=== PATIENT | male | born 1970 | race African-American/Black ===

== ENCOUNTER 2017-10-18 01:40 | Emergency (ER) | payer OTHER, SELFPAY | END 2017-10-18 02:55 | disposition home or self-care (01) | PROVIDERS: Emergency Provider Emergency Medicine; Family Provider Emergency Medicine; Visit Provider Emergency Medicine | DX: J20.9 Acute bronchitis, unspecified (principal); J01.00 Acute maxillary sinusitis, unspecified; I10 Essential (primary) hypertension; I20.8 Other forms of angina pectoris; F41.9 Anxiety disorder, unspecified | CPT/HCPCS: 71020; 87275; 87276; 99283 ==

== ENCOUNTER 2017-12-31 20:12 | Emergency (ER) | payer OTHER, SELFPAY ==
[2017-12-31 20:29] VITALS: BP 143/100; PULSE 78; RESP 20; TEMP 37.3; O2SAT 95; BMI 26.6
--- NOTE | 2017-12-31 20:32 | HMH.EDUTC ---
[facility] – [place], [place] Disposition Clinical Impression: Upper respiratory infection Qualifiers: URI type: unspecified URI Qualified Code(s): J06.9 - Acute upper respiratory infection, unspecified Disposition: Home, Self-Care Condition on Discharge: Good Instructions: DI for Fever (Symptom) -- Adult, Sore Throat Additional Instructions: * Monitor Temp. Tylenol and/or Ibuprofen as needed. ER if fever is no less than 101 despite alternating Tylenol and Ibuprofen * Encourage fluids, water, Gatorade, powerade, pedialyte if /toddler/or child * Warm salt water gargles for throat irritation *Warm fluids *Sore throat lozenges *Sleep elevated *humidifier or vaporizer Lots of rest Increase fluids, water, Gatorade, powerade *Flonase 2 sprays each nostril daily but may take 2-3 days to notice improvement with it *Your throat swab was sent to lab for culture. Those results area typically sent to your primary care physician. Be sure to follow up in 2-3 days if no improvement so they can review those results and treat if necessary If you dont have primary care I recommend you get one, but in the mean time you will have to return to a walk in clinic Follow up IMMEDIATELY for new or worsening of symptoms OR no noticeable improvement over the next 48-72 hours. 911 immediately for any life threatening symptoms such as chest pain or difficulty breathing Prescriptions: Azithromycin [Z-Justo 250mg Tab] 250 mg PO UD DOSE PK #6 tab Dextromethorphan Polistirex [Delsym] 10 ml PO Q12H PRN #300 [id number].er.[id number] PRN Reason: Cough Fluticasone Propionate [Flonase 50mcg nasal spray 16gm] 2 spr NS DAILY #1 bottle predniSONE [Prednisone 5mg Tab Dose-Pack] 5 mg PO UD DOSE PK #21 pack Referrals: Ralf Thomas MD [Primary Care Provider] - Time of Disposition: 20:48 Medical Decision Making - Medical Records Medical records reviewed: Yes: I reviewed the patient's medical records. Vital Signs: 12/31/17 20:29 Temperature 99.1 F Temperature Source Temporal Artery Scan Pulse Rate [Right] 78 Respiratory Rate 20 Blood Pressure [Right Arm] 143/100 Blood Pressure Mean [Right Arm] 114 Blood Pressure Source [Right Arm] Automatic Cuff Blood Pressure Position [Right Arm] Sitting 02 Sat by Pulse Oximetry 95 Oxygen Delivery Method Room Air - Lab Data Lab results reviewed: Yes: I reviewed the patient's lab results. Lab Results 12/31/17 20:31: Influenza Type A Ag Negative, Influenza Type B Ag Negative, Strep Scn Rapid Clinic Negative Orders (Tests/Meds): ORDERS Category Date Time Status Strep Screen Confirmation Stat Micro 12/31/17 20:31 Received - David Inquiry Pt receiving controlled substance: No David was queried for this patient: No [facility] – [place], [place] HPI - General Stated complaint: body pain Mode of Arrival: Ambulatory Source of Information: Patient Limitations: No Limitations Description of Symptoms (Recalled from Triage Doc. by RN): STATES FLU HEENT Symptoms (Recalled from RN notes): No Resp Symptoms (Recalled from RN notes): No Skin Symptoms (Recalled from RN notes): No MS Symptoms (Recalled from RN notes): No Functional Status (Recalled from RN notes): N - History of Present Illness Provider Complaint: Patient states that he feels like he may have the flu State that he has been having body aches, chills, fever, cough and sinus congestion State that he feels like he is having drainage down the back of his throat State that today he has been having fever on and off and continued to feel worse State that he is going out of town in the next couple of days and wanted to get checked to see if he had the flu - Related Data Home Medications Medication Instructions Recorded Confirmed ALPRAZolam [Alprazolam 2mg Tab] 5 mg PO DAILY 12/31/17 12/31/17 Lisinopril [Lisinopril 30mg Tablet] 30 mg PO DAILY 12/31/17 12/31/17 Previous Rx's Medication Instructions Recorded Azithromycin [Z-Justo 250mg Tab] 250 mg PO UD DOSE PK #6 tab 12/31/17 Dominic
[2017-12-31 20:41] LABS: UTC Influenza A Antigen Negative (Negative); UTC Influenza B Antigen Negative (Negative); UTC Strep Screen (Rapid) Negative (Negative)
[2017-12-31 20:51] VITALS: BP 142/90; PULSE 78; RESP 20; TEMP 37.2
== END 2017-12-31 20:52 | disposition home or self-care (01) ==
PROVIDERS: Emergency Provider Nurse Practitioner; Family Provider Emergency Medicine; PCP Emergency Medicine
DX: J06.9 Acute upper respiratory infection, unspecified (principal)
CPT/HCPCS: 87804; 87880; 99203

== ENCOUNTER → 2018-01-04 10:04 | Outpatient (REF) | payer OTHER, SELFPAY ==
[2018-01-04 14:06] LABS: Amphetamine/Metha Screen,Urine Negative ng/mL (<1000); Barbiturates Screen,Urine Negative ng/mL (<200); Benzodiazepines Screen,Urine Positive ng/mL (200); Cannabinoid Screen,Urine Negative ng/mL (<50); Cocaine Screen,Urine Negative ng/g (<300); Methadone Screen,Urine Negative ng/mL (<300); Opiate Screen,Urine Negative ng/mL (<300); Phencyclidine Screen,Urine Negative ng/mL (<25)
== END ==
LOC: LAB 10:04
PROVIDERS: Visit Provider Emergency Medicine
DX: Z79.899 Other long term (current) drug therapy (principal)
CPT/HCPCS: 80305

== ENCOUNTER → 2018-02-07 14:27 | Outpatient (POV) | payer OTHER, SELFPAY | PROVIDERS: Family Provider Emergency Medicine; PCP Emergency Medicine; Visit Provider Specialist | DX: R20.0 Anesthesia of skin (principal) | CPT/HCPCS: 95886; 95908 ==

== ENCOUNTER → 2018-04-15 09:30 | Outpatient (CLI) | payer OTHER, SELFPAY ==
[2018-04-15 14:00] LABS: Amphetamine/Metha Screen,Urine Negative ng/mL (<1000); Barbiturates Screen,Urine Negative ng/mL (<200); Benzodiazepines Screen,Urine Positive ng/mL (200); Cannabinoid Screen,Urine Negative ng/mL (<50); Cocaine Screen,Urine Negative ng/g (<300); Methadone Screen,Urine Negative ng/mL (<300); Opiate Screen,Urine Negative ng/mL (<300); Phencyclidine Screen,Urine Negative ng/mL (<25)
== END ==
PROVIDERS: Visit Provider Emergency Medicine
DX: Z79.899 Other long term (current) drug therapy (principal)
CPT/HCPCS: 80305

== ENCOUNTER → 2019-02-06 17:53 | Outpatient (CLI) | payer OTHER, SELFPAY ==
[2019-02-06 19:43] LABS: Amphetamine/Metha Screen,Urine Negative ng/mL (<1000); Barbiturates Screen,Urine Negative ng/mL (<200); Benzodiazepines Screen,Urine Positive ng/mL (<200); Cannabinoid Screen,Urine Negative ng/mL (<50); Cocaine Screen,Urine Negative ng/mL (<300); Methadone Screen,Urine Negative ng/mL (<300); Opiate Screen,Urine Negative ng/mL (<300); Phencyclidine Screen,Urine Negative ng/mL (<25)
== END ==
PROVIDERS: Visit Provider Emergency Medicine
DX: Z79.899 Other long term (current) drug therapy (principal)
CPT/HCPCS: 80305

== ENCOUNTER → 2019-05-10 17:56 | Outpatient (CLI) | payer OTHER, SELFPAY ==
[2019-05-10 19:01] LABS: Amphetamine/Metha Screen,Urine Negative ng/mL (<1000); Barbiturates Screen,Urine Negative ng/mL (<200); Benzodiazepines Screen,Urine Positive ng/mL (<200); Cannabinoid Screen,Urine Negative ng/mL (<50); Cocaine Screen,Urine Negative ng/mL (<300); Methadone Screen,Urine Negative ng/mL (<300); Opiate Screen,Urine Negative ng/mL (<300); Phencyclidine Screen,Urine Negative ng/mL (<25)
== END ==
PROVIDERS: Visit Provider Emergency Medicine
DX: Z79.899 Other long term (current) drug therapy (principal)
CPT/HCPCS: 80305

== ENCOUNTER → 2019-11-03 14:02 | Outpatient (CLI) | payer OTHER, SELFPAY ==
[2019-11-03 17:11] LABS: Amphetamine/Metha Screen,Urine Negative ng/mL (<1000); Barbiturates Screen,Urine Negative ng/mL (<200); Benzodiazepines Screen,Urine Positive ng/mL (<200); Cannabinoid Screen,Urine Negative ng/mL (<50); Cocaine Screen,Urine Negative ng/mL (<300); Methadone Screen,Urine Negative ng/mL (<300); Opiate Screen,Urine Negative ng/mL (<300); Phencyclidine Screen,Urine Negative ng/mL (<25)
== END ==
PROVIDERS: Visit Provider Emergency Medicine
DX: Z79.899 Other long term (current) drug therapy (principal)
CPT/HCPCS: 80305

== ENCOUNTER → 2019-11-27 15:36 | Outpatient (CLI) | payer OTHER, SELFPAY ==
--- NOTE | 2019-11-27 15:45 | XR_ITS ---
PROCEDURE: XR CHEST 2V CLINICAL HISTORY: sinusitis Cough, spitting up blood COMPARISON: CXR1 CHEST-PORTABLE from 02/25/2017 CXR CHEST(2 VIEWS-NOT PORTABLE) from 10/18/2017 XR CHEST 2V from 11/15/2019 FINDINGS: The cardiomediastinal silhouette and pulmonary vascularity are within normal limits. The lungs are clear without infiltrates, suspicious nodules, or pleural effusions. Minimal lower thoracic curvature convex left. Calcified granuloma left cyst perihilar region IMPRESSION: No acute findings. Dictated by: Cam Hardy MD 11/27/2019 16:33 Electronically signed by Cam Hardy MD in [place] 11/27/2019 16:33
[2019-11-27 15:59] LABS: Basophils # 0.1 K/mm3 (0-0.2); Basophils % 0.3 % (0.1-2.0); Eosinophils # 0.1 K/mm3 (0.0-0.4); Eosinophils % 0.2 % (0.1-12.0); Hematocrit 50.1 % (42.0-52.0); Lymphocytes # 4.4 K/mm3 (0.7-4.5); Lymphocytes % 22.7 % (10-50); Mean Corpuscular Hemoglobin 30.4 pg (27.0-31.2); Mean Corpuscular Volume 95.1 fl (80-94); Mean Platelet Volume 9.1 fl (7.4-10.4); Monocytes # 1.1 K/mm3 (0.1-1.0); Monocytes % 5.5 % (1.7-9.3); Neutrophils % 71.3 % (37.0-80.0); Platelet Count 326 K/mm3 (142-424); Red Blood Count 5.27 M/mm3 (4.60-6.20); Red Cell Distribution Width 13.6 % (11.5-17.5); White Blood Count 19.6 K/mm3 (4.8-10.8)
[2019-11-27 16:15] LABS: MANUAL DIFFERENTIAL MANUAL DIFFERENTIAL (MANUAL DIFF)
[2019-11-27 17:41] LABS: Lymphocytes % 27 % (10-50); Monocytes % 5 % (2-9); Neutrophils % 68 % (42-76); Platelet Estimate Normal; RBC Morphology Normal; Total Cells Counted 100
== END ==
PROVIDERS: Visit Provider Otolaryngology
DX: J01.01 Acute recurrent maxillary sinusitis (principal); J32.9 Chronic sinusitis, unspecified
CPT/HCPCS: 36415; 71046; 85007; 85025

== ENCOUNTER → 2019-12-11 13:49 | Outpatient (CLI) | payer OTHER, SELFPAY ==
--- NOTE | 2019-12-11 13:49 | CT_ITS ---
PROCEDURE: CT SINUS WO CON CLINICAL HISTORY: sinusitis COMPARISON: No exams were available for comparison TECHNIQUE: Axial images obtained with sagittal and coronal reformats. All CT scans at the facility use one or more dose reduction, viz: automated exposure control, ma/kV adjustment per patient size (including targeted exams where dose is matched to indication, i.e. head), or iterative reconstruction technique. FINDINGS: There is leftward nasal septal deviation. There is right angeline bullosa. There is an ovoid soft tissue density in the posterior left maxillary sinus 3 x 6 millimeters consistent with mucosal thickening or postinflammatory mucous retention cyst. Mild mucosal thickening is seen in right ethmoid air cells. There is mild inflammatory thickening left nasal turbinates. There is no air-fluid level. IMPRESSION: Minimal sinusitis. Dictated by: Bernabe Dougherty 12/11/2019 15:25 Electronically signed by Bernabe Dougherty in [place] 12/11/2019 15:25
== END ==
PROVIDERS: PCP Emergency Medicine; Visit Provider Otolaryngology
DX: J01.01 Acute recurrent maxillary sinusitis (principal)
CPT/HCPCS: 70486

== ENCOUNTER 2020-05-07 15:14 | Emergency (ER) | payer OTHER, SELFPAY ==
[2020-05-07 15:45] VITALS: BP 156/109; PULSE 76; RESP 20; TEMP 36.5; O2SAT 96; BMI 31.6
--- NOTE | 2020-05-07 16:03 | HMH.EDUTC ---
[facility] – [place] Disposition Clinical Impression: Sinusitis Qualifiers: Sinusitis location: unspecified location Chronicity: acute Recurrence: non-recurrent Qualified Code(s): J01.90 - Acute sinusitis, unspecified Upper respiratory infection Qualifiers: URI type: unspecified URI Qualified Code(s): J06.9 - Acute upper respiratory infection, unspecified Disposition: Home, Self-Care Condition on Discharge: Good Instructions: Sinusitis, DI for Sinusitis Additional Instructions: Drink plenty of fluids. Take tylenol or ibuprofen for pain or fever. Take the medications as directed. Follow up with your regular doctor. GO TO THE ER FOR ANY WORSENING SYMPTOMS Prescriptions: predniSONE [Prednisone 20mg Tab] 20 mg PO BID 4 Days #8 tab Transmission Status: Received by [facility] Montelukast Sodium [Singulair 10mg tablet] 10 mg PO PM 30 Days #30 tab Transmission Status: Received by [facility] Azithromycin [Z-Justo 250mg Tab*] 250 mg PO UD DOSE PK #6 tab Transmission Status: Received by [facility] Referrals: Ralf Thomas MD [Primary Care Provider] - Time of Disposition: 16:05 Medical Decision Making - Medical Records Medical records reviewed: No: I reviewed the patient's medical records. - David Inquiry Pt receiving controlled substance: No Vital Signs: 05/07/20 15:45 05/07/20 16:16 Temperature 97.7 F 97.7 F Temperature Source Oral Pulse Rate 76 Pulse Rate [Right Brachial] 76 Respiratory Rate 20 20 Blood Pressure 156/109 H Blood Pressure [Right Arm] 156/109 H Blood Pressure Mean [Right Arm] 124 Blood Pressure Source [Right Arm] Automatic Cuff Blood Pressure Position [Right Arm] Sitting 02 Sat by Pulse Oximetry 96 Oxygen Delivery Method Room Air - Lab Data Lab results reviewed: Yes: I reviewed the patient's lab results. Lab Results 05/07/20 15:48: Strep Scn Rapid Clinic Negative Orders (Tests/Meds): ORDERS Category Date Time Status Strep Screen Confirmation Stat Micro 05/07/20 15:48 Received [facility] [place] HPI - General Stated complaint: Sore throat Time Seen by Provider: 05/07/20 16:03 Mode of Arrival: Ambulatory Source of Information: Patient Limitations: No Limitations Description of Symptoms (Recalled from Triage Doc. by RN): PATIENT C/O SORE THROAT SINCE WEDNESDAY. DENIES ANY OTHER SYMPTOMS HEENT Symptoms (Recalled from RN notes): Yes Resp Symptoms (Recalled from RN notes): No Skin Symptoms (Recalled from RN notes): No MS Symptoms (Recalled from RN notes): No Functional Status (Recalled from RN notes): WNL - History of Present Illness Provider Complaint: He c/o sore throat and sinus pressure for the past 3 days. - Related Data Home Medications Medication Instructions Recorded Confirmed Montelukast Sodium [Montelukast See Rx Instructions .ROUTE .COMPLEX 11/25/19 12/18/19 10mg Tab] Previous Rx's Medication Instructions Recorded cephALEXin [Keflex 500mg Cap] 500 mg PO BID 10 Days #20 cap 11/25/19 predniSONE [Prednisone 20mg 20 mg PO BID #10 tab 11/25/19 Tab] oseltamivir 75 mg capsule 75 mg PO DAILY #10 cap 01/05/20 alprazolam 2 mg tablet 2 mg PO QID #120 tab 02/20/20 lisinopril 30 mg tablet 30 mg PO DAILY #90 tab 03/20/20 fluticasone propionate 50 See Rx Instructions .ROUTE 04/03/20 mcg/actuation nasal .COMPLEX #16 gram spray,suspension Azithromycin [Z-Justo 250mg Tab*] 250 mg PO UD DOSE PK #6 tab 05/07/20 Montelukast Sodium [Singulair 10mg 10 mg PO PM 30 Days #30 tab 05/07/20 tablet] predniSONE [Prednisone 20mg 20 mg PO BID 4 Days #8 tab 05/07/20 Tab] Allergies Allergy/AdvReac Type Severity Reaction Status Date / Time No Known Allergies Allergy Verified 12/18/19 13:09 - Worker's Comp Is this a Worker's Comp case?: No [facility] History - Hepatitis A Screen Drug use history?: No High risk sexual behaviors?: No History of sexually transmitted infection?: No Curre
[2020-05-07 16:16] VITALS: BP 156/109; PULSE 76; RESP 20; TEMP 36.5; O2SAT 96
[2020-05-07 19:47] LABS: UTC Strep Screen (Rapid) Negative (Negative)
== END 2020-05-07 16:19 | disposition home or self-care (01) ==
PROVIDERS: Emergency Provider Nurse Practitioner Family; PCP Emergency Medicine
DX: J01.90 Acute sinusitis, unspecified (principal); J06.9 Acute upper respiratory infection, unspecified; I10 Essential (primary) hypertension; F41.9 Anxiety disorder, unspecified
CPT/HCPCS: 87880; 99201

== ENCOUNTER 2020-05-14 01:51 | Emergency (ER) | payer OTHER, SELFPAY ==
[2020-05-14 01:58] VITALS: BP 157/112; PULSE 72; RESP 16; TEMP 36.7; O2SAT 99; BMI 28.1
--- NOTE | 2020-05-14 02:41 | HMH.EDANIB ---
ED Disposition Clinical Impression: Laceration Dog bite Qualifiers: Encounter type: initial encounter Qualified Code(s): W54.0XXA - Bitten by dog, initial encounter Disposition: Home, Self-Care Condition on Discharge: Good Instructions: Animal Bites Additional Instructions: sutures out 10 days Prescriptions: Amoxicillin/Potassium Clav [Augmentin 875-125 Tablet] 1 tab PO Q12H #20 tab Transmission Status: Pending to [facility] Referrals: Ralf Thomas MD [Primary Care Provider] - - Critical Care Critical Care Time: No Attestation: On 05/14/20, the high probability of a clinically significant, sudden or life threatening deterioration of the following system(s) required my full and direct attention, intervention and personal management. The time I documented below is in addition to time spent performing reported procedures but includes the following listed in this critical care notation. Medical Decision Making - Medical Records Medical records reviewed: Yes: I reviewed the patient's medical records. - David Inquiry Pt receiving controlled substance: No Vital Signs: 05/14/20 01:58 Temperature 98.1 F Temperature Source Oral Pulse Rate [Left Brachial] 72 Respiratory Rate 16 Blood Pressure [Left Arm] 157/112 H Blood Pressure Mean [Left Arm] 127 Blood Pressure Source [Left Arm] Automatic Cuff Blood Pressure Position [Left Arm] Sitting 02 Sat by Pulse Oximetry 99 Oxygen Delivery Method Room Air Orders (Tests/Meds): ED MEDICATIONS Discontinued Medications Generic Name Dose Route Start Last Admin Trade Name Freq PRN Reason Stop Dose Admin Amoxicillin/Clavulanate Potassium 1 each 05/14/20 02:07 05/14/20 02:14 Augmentin 500mg Tablet PO 05/14/20 02:08 1 each ONCE ONE Administration Protocol Tetanus/Reduced Diphtheria/Acell Pertussis 0.5 ml 05/14/20 02:07 05/14/20 02:13 Adacel Tdap 0.5ml Syringe IM 05/14/20 02:08 0.5 ml .ONCE ONE Administration Animal Bite HPI - General Chief Complaint: Animal Bite Stated Complaint: Dog Bite Time Seen by Provider: 05/14/20 02:00 Mode of Arrival: Ambulatory Source of Information: Patient, Medical Record Limitations: No Limitations Description of Symptoms (Recalled from ER Triage Doc. by RN): Patient reports he was walking home and got bit by an unknown dog on his right lower leg. - History of Present Illness HPI narrative: dog bite rt lower leg - MD complaint: animal bite Onset (ago): hour(s) Animal: dog Description of animal: unknown animal, immunizations unknown, appeared well Mechanism: bite Right: lower leg Associated symptoms: none - Related Data Patient tetanus UTD: No Home Medications Medication Instructions Recorded Confirmed Montelukast Sodium [Montelukast See Rx Instructions .ROUTE .COMPLEX 11/25/19 12/18/19 10mg Tab] Previous Rx's Medication Instructions Recorded cephALEXin [Keflex 500mg Cap] 500 mg PO BID 10 Days #20 cap 11/25/19 predniSONE [Prednisone 20mg 20 mg PO BID #10 tab 11/25/19 Tab] oseltamivir 75 mg capsule 75 mg PO DAILY #10 cap 01/05/20 alprazolam 2 mg tablet 2 mg PO QID #120 tab 02/20/20 lisinopril 30 mg tablet 30 mg PO DAILY #90 tab 03/20/20 fluticasone propionate 50 See Rx Instructions .ROUTE 04/03/20 mcg/actuation nasal .COMPLEX #16 gram spray,suspension Azithromycin [Z-Justo 250mg Tab*] 250 mg PO UD DOSE PK #6 tab 05/07/20 Montelukast Sodium [Singulair 10mg 10 mg PO PM 30 Days #30 tab 05/07/20 tablet] predniSONE [Prednisone 20mg 20 mg PO BID 4 Days #8 tab 05/07/20 Tab] Amoxicillin/Potassium Clav 1 tab PO Q12H #20 tab 05/14/20 [Augmentin 875-125 Tablet] Allergies Allergy/AdvReac Type Severity Reaction Status Date / Time No Known Allergies Allergy Verified 12/18/19 13:09 [facility] History - Hepatitis A Screen Drug use history?: No High risk sexual behaviors?: No History of sexually transmitted infection?: No
[2020-05-14 02:54] VITALS: BP 140/85; PULSE 68; RESP 16; TEMP 36.7; O2SAT 99
== END 2020-05-14 02:59 | disposition home or self-care (01) ==
PROVIDERS: Emergency Provider Emergency Medicine; PCP Emergency Medicine
DX: S81.811A Laceration without foreign body, right lower leg, initial encounter (principal); W54.0XXA Bitten by dog, initial encounter; Y92.414 Local residential or business street as the place of occurrence of the external cause; I10 Essential (primary) hypertension; Z23 Encounter for immunization; F41.8 Other specified anxiety disorders; Z79.899 Other long term (current) drug therapy
CPT/HCPCS: 12001; 90471; 90715; 99282

== ENCOUNTER → 2020-05-17 16:47 | Outpatient (CLI) | payer OTHER, SELFPAY | PROVIDERS: Visit Provider Emergency Medicine | DX: W54.0XXA Bitten by dog, initial encounter; L03.115 Cellulitis of right lower limb | CPT/HCPCS: 87070; 87077; 87205 ==

== ENCOUNTER 2020-07-30 10:36 | Emergency (ER) | payer OTHER, SELFPAY ==
[2020-07-30 10:55] VITALS: BP 145/91; PULSE 66; RESP 19; TEMP 36.6; O2SAT 98; BMI 27.3
--- NOTE | 2020-07-30 10:56 | HMH.EDUTC ---
[facility] [place] Disposition Clinical Impression: Left otitis media Qualifiers: Otitis media type: suppurative Chronicity: acute Recurrence: non-recurrent Spontaneous tympanic membrane rupture: without spontaneous rupture Qualified Code(s): H66.002 - Acute suppurative otitis media without spontaneous rupture of ear drum, left ear Disposition: Home, Self-Care Condition on Discharge: Good Instructions: Middle Ear Infection Additional Instructions: Drink plenty of fluids. Take tylenol for pain or fever. Follow up with your regular doctor. GO TO THE ER FOR ANY WORSENING SYMPTOMS .FOLLOW THE DIRECTIONS ON THE COVID-19 HAND OUT THAT WE GAVE YOU REGARDING SELF-ISOLATION UNTIL YOU KNOW YOUR COVID-19 RESULTS Prescriptions: Amoxicillin [Amoxicillin 500mg Tab] 500 mg PO TID 10 Days #30 tab Transmission Status: Pending to [facility] predniSONE [Deltasone 10mg tablet] 10 mg PO BID 5 Days #10 tab [facility] Referrals: Ralf Thomas MD [Primary Care Provider] - Time of Disposition: 11:14 Medical Decision Making - Medical Records Medical records reviewed: No: I reviewed the patient's medical records. - David Inquiry Pt receiving controlled substance: No Vital Signs: 07/30/20 10:55 Temperature 97.8 F Temperature Source Oral Pulse Rate [Right Brachial] 66 Respiratory Rate 19 Blood Pressure [Right Arm] 145/91 H Blood Pressure Mean [Right Arm] 109 Blood Pressure Source [Right Arm] Automatic Cuff Blood Pressure Position [Right Arm] Sitting 02 Sat by Pulse Oximetry 98 Oxygen Delivery Method Room Air [facility] [place] HPI - General Stated complaint: ear pain, dizzy Time Seen by Provider: 07/30/20 10:56 - History of Present Illness Provider Complaint: He c/o left ear pain and dizziness since last night. He denies any additional symptoms. He denies any chest pain or shortness of breath. - Related Data Previous Rx's Medication Instructions Recorded fluticasone propionate 50 See Rx Instructions .ROUTE 04/03/20 mcg/actuation nasal .COMPLEX #16 gram spray,suspension Montelukast Sodium [Singulair 10mg 10 mg PO PM 30 Days #30 tab 05/07/20 tablet] Amoxicillin/Potassium Clav 1 tab PO Q12H #20 tab 07/21/20 [Augmentin 875-125 Tablet] alprazolam 2 mg tablet 2 mg PO QID #120 tab 05/17/20 clindamycin HCl 300 mg capsule 300 mg PO TID 7 Days #21 cap 05/17/20 lisinopril 30 mg tablet 30 mg PO DAILY #90 tab 05/17/20 montelukast 10 mg tablet 10 mg PO DAILY 90 Days #90 tab 07/08/20 Amoxicillin [Amoxicillin 500mg Tab] 500 mg PO TID 10 Days #30 tab 07/30/20 predniSONE [Deltasone 10mg tablet] 10 mg PO BID 5 Days #10 tab 07/30/20 Allergies Allergy/AdvReac Type Severity Reaction Status Date / Time No Known Allergies Allergy Verified 05/31/20 15:05 [facility] History - Hepatitis A Screen Attestation statement:: This patient has been screened for Hepatitis A risk factors. I have reviewed the patient's past medical history: Yes Medical History: Reports:: Anxiety, Hypertension Denies:: Cancer, Diabetes Mellitus Type 1, Diabetes Mellitus Type 2, MRSA Other Medical History: Reports: Sinus Problems Laterality Cases: Bilateral: Other Other Surgeries: Yes: No Previous Surgery, Other Amputation: No Fractures: No Comment: Oral Surgery - Social History Smoking Status: Never smoker Alcohol Intake: never Substance Use Type: denies use Occupational Status: unemployed - Psychiatric History Pschychiatric History:: Reports:: Anxiety Family Hx:: Cancer, Hypertension ROS Obtained: Yes All systems reviewed & no additional complaints - Constitutional Constitutional: Denies chills, Denies fever(s) - Eyes Eyes: Denies eye discharge - ENT Ears, Nose, Mouth, and Throat: Reports as per HPI - Cardiovascular Cardiovascular: Denies chest pain - Respiratory Respiratory: No chest congestion, No cough Physical Exam - General General appearance:
[2020-07-30 11:16] VITALS: BP 145/91; PULSE 66; RESP 16; TEMP 36.6; O2SAT 98
== END 2020-07-30 11:20 | disposition home or self-care (01) ==
PROVIDERS: Emergency Provider Nurse Practitioner Family; PCP Emergency Medicine
DX: H66.002 Acute suppurative otitis media without spontaneous rupture of ear drum, left ear (principal); R42 Dizziness and giddiness; I10 Essential (primary) hypertension; F41.9 Anxiety disorder, unspecified; Z79.899 Other long term (current) drug therapy
CPT/HCPCS: 99201

== ENCOUNTER 2020-09-28 20:31 | Emergency (ER) | payer OTHER, SELFPAY ==
--- NOTE | 2020-09-28 20:45 | PC.NURSE ---
Pt requested to go to the [facility], educated pt based on his s/s he needs to be evaluated in the ED, pt stated if they would see him in the [facility] he would rather go there, spoke to the provider in [facility] and she stated she would evaluate him.
[2020-09-28 20:46] VITALS: BP 157/101; PULSE 56; RESP 20; O2SAT 100; BMI 28.1
[2020-09-28 20:50] VITALS: BP 147/97; PULSE 56; RESP 20; TEMP 36.8; O2SAT 100; BMI 28.2
--- NOTE | 2020-09-28 20:58 | HMH.EDUTC ---
[facility] [place] [facility] [place] Clinical Impression: Vertigo Disposition: Home, Self-Care Condition on Discharge: Good Instructions: Vertigo (Alternative Therapy), DI for Vertigo Additional Instructions: if no improvement or worsening return or be seen in ed if no improvement follow up in pcp office wednesday take meds as ordered Prescriptions: cephALEXin [Keflex 500mg Cap] 500 mg PO BID 10 Days #20 cap Prescription Printed methylPREDNISolone [Medrol 4mg tab] 4 mg PO DIRECTED #21 tab Prescription Printed Referrals: Ralf Thomas MD [Primary Care Provider] - Time of Disposition: 21:19 Medical Decision Making - David Inquiry Pt receiving controlled substance: No Vital Signs: 09/28/20 20:46 Pulse Rate [Right] 56 L Respiratory Rate 20 Blood Pressure [Right Arm] 157/101 H Blood Pressure Mean [Right Arm] 119 02 Sat by Pulse Oximetry 100 - Physician Consults Physician Consulted: jennifer Time: 21:20 Reason -: Pt condition [facility] [place] [facility] [place] HPI - General Chief complaint: [facility] Stated complaint: dizzyness Time Seen by Provider: 09/28/20 20:58 Mode of Arrival: Ambulatory Limitations: No Limitations Description of Symptoms (Recalled from Triage Doc. by RN): Dizziness that has lasted all day. Pt feels he has an inner ear issue. - History of Present Illness Provider Complaint: 50 yr old male presents for dizziness with movement that been going on all day. states he has vertigo and it feels like his normal vertigo. pt states he forgot to take his lisinopril and just took it prior to coming in. pt states no other issues at this time. - Related Data Previous Rx's Medication Instructions Recorded fluticasone propionate 50 See Rx Instructions .ROUTE 04/03/20 mcg/actuation nasal .COMPLEX #16 gram spray,suspension montelukast 10 mg tablet 10 mg PO DAILY 90 Days #90 tab 07/08/20 alprazolam 2 mg tablet 2 mg PO QID #120 tab 08/05/20 cephalexin 500 mg capsule 500 mg PO TID #21 cap 08/05/20 lisinopril 30 mg tablet 30 mg PO DAILY #90 tab 08/05/20 methylprednisolone 4 mg tablets in See Rx Instructions PO PER PKG DIR 08/05/20 a dose pack #21 tab cephALEXin [Keflex 500mg Cap] 500 mg PO BID 10 Days #20 cap 09/28/20 methylPREDNISolone [Medrol 4mg 4 mg PO DIRECTED #21 tab 09/28/20 tab] Allergies Allergy/AdvReac Type Severity Reaction Status Date / Time No Known Allergies Allergy Verified 08/05/20 13:35 [facility] History - Hepatitis A Screen Attestation statement:: This patient has been screened for Hepatitis A risk factors. I have reviewed the patient's past medical history: Yes Medical History: Reports:: Anxiety, Hypertension Denies:: Cancer, Diabetes Mellitus Type 1, Diabetes Mellitus Type 2, MRSA Other Medical History: Reports: Sinus Problems Laterality Cases: Bilateral: Other Other Surgeries: Yes: No Previous Surgery, Other Amputation: No Fractures: No Comment: Oral Surgery - Social History Smoking Status: Never smoker Alcohol Intake: never Substance Use Type: denies use Occupational Status: other - Psychiatric History Pschychiatric History:: Reports:: Anxiety Family Hx:: Cancer, Hypertension ROS Obtained: Yes Systems reviewed as appropriate & no additional complaints - Constitutional Constitutional: Reports system reviewed and no additional complaints, except as docu - Eyes Eyes: Reports system reviewed and no additional complaints, except as docu - ENT Ears, Nose, Mouth, and Throat: Reports system reviewed and no additional complaints, except as docu - Cardiovascular Cardiovascular: Reports system reviewed and no additional complaints, except as docu - Respiratory Respiratory: Yes system reviewed and no additional complaints, except as docu - Gastrointestinal Gastrointestingal: Reports: system reviewed and no additional complaints, except as docu - Genitourinary Male Genitourinary: Reports system reviewed and no additional complaints, except as docu - Mus
[2020-09-28 21:17] VITALS: BP 147/97; PULSE 56; RESP 20; TEMP 36.8; O2SAT 100
== END 2020-09-28 21:20 | disposition home or self-care (01) ==
LOC: ER 20:46 → UTC 20:47
PROVIDERS: Emergency Provider Nurse Practitioner Family; PCP Emergency Medicine
DX: R42 Dizziness and giddiness (principal); I10 Essential (primary) hypertension; F41.9 Anxiety disorder, unspecified; Z79.899 Other long term (current) drug therapy
CPT/HCPCS: 99201

== ENCOUNTER → 2021-01-29 17:21 | Outpatient (CLI) | payer OTHER, SELFPAY ==
[2021-01-29 19:05] LABS: Amphetamine/Metha Screen,Urine Negative ng/ml (<1000); Barbiturates Screen,Urine Negative ng/ml (<200)
[2021-01-29 19:06] LABS: Benzodiazepines Screen,Urine Positive ng/ml (<200); Cannabinoid Screen,Urine Negative ng/ml (<50)
[2021-01-29 19:07] LABS: Cocaine Screen,Urine Negative ng/ml (<300)
[2021-01-29 19:08] LABS: Methadone Screen,Urine Negative ng/ml (<300); Opiate Screen,Urine Negative ng/ml (<300)
[2021-01-29 19:09] LABS: Phencyclidine Screen,Urine Negative ng/ml (<25)
== END ==
PROVIDERS: Visit Provider Emergency Medicine
DX: Z79.899 Other long term (current) drug therapy (principal)
CPT/HCPCS: 80305

== ENCOUNTER → 2021-04-23 12:53 | Outpatient (CLI) | payer OTHER, SELFPAY ==
[2021-04-23 13:52] LABS: Amphetamine/Metha Screen,Urine Negative ng/ml (<1000); Benzodiazepines Screen,Urine Positive ng/ml (<200)
[2021-04-23 13:53] LABS: Barbiturates Screen,Urine Negative ng/ml (<200)
[2021-04-23 13:54] LABS: Cannabinoid Screen,Urine Negative ng/ml (<50); Methadone Screen,Urine Negative ng/ml (<300)
[2021-04-23 13:55] LABS: Cocaine Screen,Urine Negative ng/ml (<300)
[2021-04-23 13:56] LABS: Opiate Screen,Urine Negative ng/ml (<300)
[2021-04-23 13:57] LABS: Phencyclidine Screen,Urine Negative ng/ml (<25)
== END ==
PROVIDERS: Visit Provider Emergency Medicine
DX: Z51.81 Encounter for therapeutic drug level monitoring (principal); Z79.891 Long term (current) use of opiate analgesic; Z79.899 Other long term (current) drug therapy
CPT/HCPCS: 80305

== ENCOUNTER 2021-04-23 23:05 | Emergency (ER) | payer OTHER, SELFPAY ==
[2021-04-23 23:14] VITALS: BP 167/93; PULSE 50; RESP 18; TEMP 36.7; O2SAT 96; BMI 29.7
[2021-04-24] VITALS: BP 162/91; PULSE 60; O2SAT 97
--- NOTE | 2021-04-24 00:03 | PC.NURSE ---
pt going to radiology.
--- NOTE | 2021-04-24 00:15 | HMH.EDLOEX ---
ED Disposition Clinical Impression: Facial contusion Qualifiers: Encounter type: initial encounter Qualified Code(s): S00.83XA - Contusion of other part of head, initial encounter Left knee sprain Qualifiers: Encounter type: initial encounter Involved ligament of knee: unspecified ligament Qualified Code(s): S83.92XA - Sprain of unspecified site of left knee, initial encounter Sprain of foot, left Qualifiers: Encounter type: initial encounter Qualified Code(s): S93.602A - Unspecified sprain of left foot, initial encounter Disposition: Home, Self-Care Condition on Discharge: Good Instructions: DI for Knee Sprain Additional Instructions: ice and recheck if needed Referrals: Ralf Thomas MD [Primary Care Provider] - - Critical Care Critical Care Time: No Attestation: On 04/23/21, the high probability of a clinically significant, sudden or life threatening deterioration of the following system(s) required my full and direct attention, intervention and personal management. The time I documented below is in addition to time spent performing reported procedures but includes the following listed in this critical care notation. Medical Decision Making - Medical Records Medical records reviewed: Yes: I reviewed the patient's medical records. - David Inquiry Pt receiving controlled substance: No Vital Signs: 04/23/21 23:14 04/24/21 00:00 Temperature 98.1 F Temperature Source Oral Pulse Rate 60 Pulse Rate [Right] 50 L Respiratory Rate 18 Blood Pressure 162/91 H Blood Pressure [Right Arm] 167/93 H Blood Pressure Mean [Right Arm] 117 Blood Pressure Source [Right Arm] Automatic Cuff Blood Pressure Position [Right Arm] Sitting 02 Sat by Pulse Oximetry 96 97 Oxygen Delivery Method Room Air - Lab Data Lab results reviewed: Yes: I reviewed the patient's lab results. - Radiology Data #1 Image(s): Facial Bones, Knee, Foot/Toes Image Reviewed: Yes I reviewed the patient's radiology image, Yes I have reviewed radiologist's interpretation Preliminary Findings: No Fracture Seen Medical Decision Narrative: ice and see pcp as needed Lower Extremity Injury HPI - General Chief Complaint: Extremity Injury, Lower Stated Complaint: AO 04/23/21 2100 Injury Left Knee left foot Time Seen by Provider: 04/24/21 00:00 Mode of Arrival: Ambulatory Source of Information: Patient, Medical Record Limitations: No Limitations Description of Symptoms (Recalled from ER Triage Doc. 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 Pt ambulatory. - History of Present Illness HPI Narrative: stepped in hole earlier and injured lt foot/knee and facial area - no loc or other c/o MD complaint: knee injury, foot injury Onset (ago): hour(s) Injury: Left: knee, foot Type of Injury: blunt Place: street/outdoors Severity: moderate Context: walking Associated symptoms: swelling, able to partially bear weight Other symptoms: none - Related Data Previous Rx's Medication Instructions Recorded fluticasone propionate 50 See Rx Instructions .ROUTE 03/17/21 mcg/actuation nasal .COMPLEX #16 gram spray,suspension montelukast 10 mg tablet 10 mg PO DAILY 90 Days #90 tab 03/17/21 lisinopril 30 mg tablet See Rx Instructions .ROUTE 03/21/21 .COMPLEX #90 tab alprazolam 2 mg tablet 2 mg PO QID #120 tab 04/23/21 Allergies Allergy/AdvReac Type Severity Reaction Status Date / Time No Known Allergies Allergy Verified 04/23/21 10:28 [facility] History - Hepatitis A Screen Drug use history?: No High risk sexual behaviors?: No History of sexually transmitted infection?: No Currently employed?: No Childcare worker?: No Do you have indoor plumbing?: Yes Do you have electricity?: Yes Attestation statement:: This patient has been screened for Hepatitis A risk factors. I have reviewed the patient's past medical history: Yes Medical History
[2021-04-24 00:31] VITALS: BP 155/85; PULSE 75; O2SAT 96
[2021-04-24 01:01] VITALS: BP 165/96; PULSE 93; O2SAT 97
[2021-04-24 01:16] VITALS: BP 153/88; PULSE 78; O2SAT 98
[2021-04-24 01:29] VITALS: BP 151/71; PULSE 72; RESP 18; TEMP 36.7; O2SAT 97
--- NOTE | 2021-04-24 23:26 | XR_ITS ---
PROCEDURE INFORMATION: Exam: XR Left Knee Exam date and time: 04/24/2021 11:26 PM Age: 50 years old Clinical indication: Left; Patient HX: Fall, foot, knee, and right face pain TECHNIQUE: Imaging protocol: XR Left knee. Views: 3 views. COMPARISON: No relevant prior studies available. FINDINGS: Bones/joints: No acute fracture or malalignment. Soft tissues: Soft tissue swelling overlying the patella. IMPRESSION: 1. No acute fracture or malalignment. 2. Soft tissue swelling overlying the patella.
--- NOTE | 2021-04-24 23:26 | XR_ITS ---
PROCEDURE INFORMATION: Exam: XR Facial Bones, Minimum of 3 Views, Complete Exam date and time: 04/24/2021 11:26 PM Age: 50 years old Clinical indication: Patient HX: Fall, foot, knee, and right face pain TECHNIQUE: Imaging protocol: XR of the facial bones, minimum of 3 views. Complete exam. COMPARISON: SINUS CT SINUS (MAX-FACIAL W/O CONT) 06/10/2015 1:16 PM FINDINGS: Sinuses: Well aerated. No opacification. Bones/joints: No fracture. A leftward nasal septal deviation. Soft tissues: Unremarkable. IMPRESSION: Unremarkable.
--- NOTE | 2021-04-24 23:26 | XR_ITS ---
PROCEDURE INFORMATION: Exam: XR Left Foot Exam date and time: 04/24/2021 11:26 PM Age: 50 years old Clinical indication: Left; Patient HX: Fall, foot, knee, and right face pain TECHNIQUE: Imaging protocol: XR Left foot. Views: 3 or more views. COMPARISON: No relevant prior studies available. FINDINGS: Bones/joints: No acute fracture or malalignment. Soft tissues: Unremarkable. IMPRESSION: No acute fracture or malalignment.
== END 2021-04-24 01:32 | disposition home or self-care (01) ==
PROVIDERS: Emergency Provider Emergency Medicine; PCP Emergency Medicine
DX: S00.83XA Contusion of other part of head, initial encounter (principal); S93.602A Unspecified sprain of left foot, initial encounter; S83.92XA Sprain of unspecified site of left knee, initial encounter; X50.1XXA Overexertion from prolonged static or awkward postures, initial encounter; Y92.73 Farm field as the place of occurrence of the external cause; F41.9 Anxiety disorder, unspecified; I10 Essential (primary) hypertension; Z79.899 Other long term (current) drug therapy
CPT/HCPCS: 70150; 73562; 73630; 99281; 99282

== ENCOUNTER → 2021-07-21 14:15 | Outpatient (CLI) | payer OTHER, SELFPAY ==
[2021-07-21 14:33] LABS: Alanine Aminotransferase 69 U/L (12-78); Albumin Level 4.4 g/dl (3.5-5.0); Albumin/Globulin Ratio 1.3 (1.1-1.8); Alkaline Phosphatase 79 U/L (38-126); Anion Gap 13.5 mEq/L (5-15); Aspartate Amino Transferase 56 U/L (17-59); Bilirubin,Total 0.7 mg/dl (0.2-1.3); Blood Urea Nitrogen 15 mg/dl (9-20); Calcium 9.7 mg/dl (8.4-10.2); Carbon Dioxide 25 mmol/L (22.0-30.0); Chloride 104 mmol/L (98-107); Cholesterol 188 mg/dl (140-200); Estimated Glomerular Filt Rate 64 ml/min (>60); GFR (African American) 77 ML/MIN (>60); Globulin 3.3 g/dL (1.3-3.2); Glucose 122 mg/dl (74-100); HDL Cholesterol 47 mg/dl (40-60); Potassium 4.5 mmoL/L (3.5-5.1); Sodium 138 mmol/L (136-145); Total Protein,Serum 7.7 g/dl (6.3-8.2); Triglycerides 103 mg/dl (30-150); VLDL Cholesterol 21 mg/dL (0-40)
[2021-07-21 14:34] LABS: Basophils # 0.1 K/mm3 (0-0.2); Eosinophils % 0.5 % (0.1-12.0); Hematocrit 50.9 % (42.0-52.0); Hemoglobin 16.6 g/dL (14.1-18.0); Lymphocytes # 3.4 K/mm3 (0.7-4.5); Lymphocytes % 37.7 % (10-50); Mean Corpuscular HGB Conc 32.6 g/dL (31.8-35.4); Mean Corpuscular Hemoglobin 31.5 pg (27.0-31.2); Mean Corpuscular Volume 96.7 fl (80-94); Mean Platelet Volume 10.8 fl (7.4-10.4); Monocytes # 0.4 K/mm3 (0.1-1.0); Monocytes % 4.4 % (1.7-9.3); Neutrophils # 5.1 K/mm3 (1.8-7.8); Neutrophils % 56.5 % (37.0-80.0); Platelet Count 295 K/mm3 (142-424); Red Blood Count 5.26 M/mm3 (4.60-6.20); Red Cell Distribution Width 13.5 % (11.5-17.5); White Blood Count 9.1 K/mm3 (4.8-10.8)
[2021-07-21 14:45] LABS: Direct LDL Cholesterol 95.99 mg/dL (100-129)
[2021-07-21 14:50] LABS: 25-OH Vitamin D, Total 18.4 ng/mL (30-100)
[2021-07-21 14:51] LABS: T4 (Thyroxine) 8.3 ug/dl (5.53-11.0)
[2021-07-21 15:05] LABS: Thyroid Stimulating Hormone 1.61 uIU/mL (0.465-4.68)
[2021-07-21 15:20] LABS: Amphetamine/Metha Screen,Urine Negative ng/ml (<1000)
[2021-07-21 15:21] LABS: Barbiturates Screen,Urine Negative ng/ml (<200); Benzodiazepines Screen,Urine Positive ng/ml (<200)
[2021-07-21 15:23] LABS: Cannabinoid Screen,Urine Negative ng/ml (<50)
[2021-07-21 15:24] LABS: Cocaine Screen,Urine Negative ng/ml (<300)
[2021-07-21 15:25] LABS: Methadone Screen,Urine Negative ng/ml (<300); Opiate Screen,Urine Negative ng/ml (<300)
[2021-07-21 15:26] LABS: Phencyclidine Screen,Urine Negative ng/ml (<25)
== END ==
PROVIDERS: Visit Provider Emergency Medicine
DX: Z79.899 Other long term (current) drug therapy (principal); I10 Essential (primary) hypertension
CPT/HCPCS: 80053; 80061; 80305; 82306; 84436; 84443; 85025

== ENCOUNTER 2021-09-03 16:46 | Emergency (ER) | payer OTHER, SELFPAY ==
[2021-09-03 16:58] VITALS: BP 177/98; PULSE 79; RESP 18; TEMP 36.9; O2SAT 97; BMI 27.3
[2021-09-03 17:06] LABS: UTC Strep Screen (Rapid) Positive (Negative)
[2021-09-03 17:15] VITALS: BP 177/98; PULSE 79; RESP 18; TEMP 36.9
--- NOTE | 2021-09-03 17:41 | HMH.EDUTC ---
[facility] [place] Disposition Clinical Impression: Strep throat Disposition: Home, Self-Care Condition on Discharge: Good Instructions: Strep Throat, DI for Strep Throat Additional Instructions: Drink plenty of fluids. Take tylenol or ibuprofen for pain or fever. Take the medications as directed. Follow up with your regular doctor. GO TO THE ER FOR ANY WORSENING SYMPTOMS Throw your tooth brush away and get a new one. Don't start the oral steroids (prednisone) until tomorrow, since you had the shot here today. Go ahead and start the oral antibiotics (Augmentin---amoxicillin/clavulanate) this evening. Eat food with the medications. They could upset your stomach. Prescriptions: Amoxicillin/Potassium Clav [Augmentin 875-125 Tablet] 1 tab PO Q12H 10 Days #20 tab Transmission Status: Received by [facility] predniSONE [Deltasone 10mg tablet] 10 mg PO BID 4 Days #8 tab Transmission Status: Received by [facility] Referrals: Ralf Thomas MD [Primary Care Provider] - Time of Disposition: 17:54 Medical Decision Making - Medical Records Medical records reviewed: No: I reviewed the patient's medical records. - David Inquiry Pt receiving controlled substance: No Vital Signs: 09/03/21 16:58 09/03/21 17:15 Temperature 98.5 F 98.5 F Temperature Source Oral Pulse Rate 79 Pulse Rate [Left] 79 Respiratory Rate 18 18 Blood Pressure 177/98 H Blood Pressure [Right Arm] 177/98 H Blood Pressure Mean [Right Arm] 124 02 Sat by Pulse Oximetry 97 - Lab Data Lab results reviewed: Yes: I reviewed the patient's lab results. Lab Results 09/03/21 17:05: Strep Scn Rapid Clinic Positive A Orders (Tests/Meds): ED MEDICATIONS Discontinued Medications Generic Name Dose Route Start Last Admin Trade Name Freq PRN Reason Stop Dose Admin Ceftriaxone Sodium 1 gm 09/03/21 17:47 09/03/21 17:58 Ceftriaxone 1gm Vial IM 09/03/21 17:48 1 gm ONCE ONE Administration Lidocaine HCl 0 ml 09/03/21 17:47 09/03/21 17:58 Lidocaine 1% 5ml Pf Vial IM 09/03/21 17:48 2.5 ml ONCE ONE Administration Methylprednisolone Sodium Succinate 125 mg 09/03/21 17:47 09/03/21 17:58 Methylprednisolone Sod Succ 125mg Vial IM 09/03/21 17:48 125 mg ONCE ONE Administration [facility] HPI - General Stated complaint: sore throat Time Seen by Provider: 09/03/21 17:41 Mode of Arrival: Ambulatory Source of Information: Patient Limitations: No Limitations Description of Symptoms (Recalled from Triage Doc. by RN): pt c/o sore throat. pt had a covid test today. HEENT Symptoms (Recalled from RN notes): Yes (sore throat) Resp Symptoms (Recalled from RN notes): No Skin Symptoms (Recalled from RN notes): No MS Symptoms (Recalled from RN notes): No Functional Status (Recalled from RN notes): na - History of Present Illness Provider Complaint: He states that he has had a sore throat for the past 3 days. He has ran a low grade fever and had chills also. He has been fully vaccinated for covid-19. He denies any shortness of breath or chest congestion. He has had some nasal drainage and ear pain. - Related Data Previous Rx's Medication Instructions Recorded fluticasone propionate 50 See Rx Instructions .ROUTE 03/17/21 mcg/actuation nasal .COMPLEX #16 gram spray,suspension montelukast 10 mg tablet 10 mg PO DAILY 90 Days #90 tab 03/17/21 lisinopril 30 mg tablet See Rx Instructions .ROUTE 03/21/21 .COMPLEX #90 tab meloxicam 15 mg tablet 15 mg PO DAILY #10 tab 05/06/21 alprazolam 2 mg tablet 2 mg PO QID #120 tab 07/21/21 cholecalciferol (vitamin D3) 1,250 1,250 mcg PO WEEKLY #10 cap 07/24/21 mcg (50,000 unit) capsule cholecalciferol (vitamin D3) 25 25 mcg PO DAILY #90 cap 07/24/21 mcg (1,000 unit) capsule Amoxicillin/Potassium Clav 1 tab PO Q12H 10 Days #20 tab 09/03/21 [Augmentin 875-125 Tablet] predniSONE [Deltasone 10mg tablet] 10 mg PO BID 4 Days #8 tab
== END 2021-09-03 18:11 | disposition home or self-care (01) ==
PROVIDERS: Emergency Provider Nurse Practitioner Family; PCP Emergency Medicine
DX: J02.0 Streptococcal pharyngitis (principal); Z20.822 Contact with and (suspected) exposure to COVID-19; F41.9 Anxiety disorder, unspecified; I10 Essential (primary) hypertension; Z79.899 Other long term (current) drug therapy
CPT/HCPCS: 87880; 96372; 99202; G0463

== ENCOUNTER 2021-10-27 14:10 | Emergency (ER) | payer OTHER, SELFPAY ==
[2021-10-27 17:15] VITALS: BP 141/84; PULSE 67; RESP 19; TEMP 37.1; O2SAT 99; BMI 30.2
[2021-10-27 17:28] LABS: UTC Strep Screen (Rapid) Positive (Negative)
--- NOTE | 2021-10-27 17:40 | HMH.EDUTC ---
[facility] [place] Disposition Clinical Impression: Strep throat Disposition: Home, Self-Care Condition on Discharge: Good Instructions: DI for Strep Throat, Strep Throat Additional Instructions: *Monitor Temp, Over the counter Motrin or Tylenol as directed/as needed Tylenol every 4 hours and Motrin every 6 hours (as long as your family doctor has told you that you can take it) for fever or pain. and straight to ER if unable to lower temp less than 101.0 after medication given *Warm salt water gargles may help to soothe the throat *Throat Lozenges *Warm fluids like tea with honey may help to soothe the throat *Sleep elevated *Humidifier/Vaporizer *If you did not take Penicillin shot or was unable to, start taking antibiotic immediately and make sure that you take it for the FULL length of time although you should start to feel better in 24-48 hours *change toothbrush and toothpaste 24-48 hours after starting to take antibiotics so you do not reinfect yourself Monitor Temp. Tylenol and/or Ibuprofen as needed. ER if fever is no less than 101 despite alternating Tylenol and Ibuprofen * Encourage fluids, water, Gatorade, powerade, pedialyte if infant/toddler/or child *Cold fluids, popsicles and ice cream may feel good on his throat Follow up IMMEDIATELY for new or worsening symptoms or no Noticeable improvement over the next 48-72 hours. 911 for difficulty breathing or swallowing Prescriptions: Cefdinir [Omnicef 300mg Capsule] 300 mg PO BID #20 cap Transmission Status: Pending to [facility] Referrals: Ralf Thomas MD [Primary Care Provider] - As needed Time of Disposition: 17:54 Medical Decision Making - David Inquiry Pt receiving controlled substance: No David was queried for this patient: No Vital Signs: 10/27/21 17:15 Temperature 98.7 F Temperature Source Oral Pulse Rate [Right Brachial] 67 Respiratory Rate 19 Blood Pressure [Right Arm] 141/84 H Blood Pressure Mean [Right Arm] 103 Blood Pressure Source [Right Arm] Automatic Cuff Blood Pressure Position [Right Arm] Sitting 02 Sat by Pulse Oximetry 99 Oxygen Delivery Method Room Air - Lab Data Lab results reviewed: Yes: I reviewed the patient's lab results. Lab Results 10/27/21 17:21: Strep Scn Rapid Clinic Positive A Orders (Tests/Meds): ORDERS Category Date Time Status Covid-19 Nasal PCR ([facility]) Routine Lab 10/27/21 17:10 Received [facility] HPI - General Stated complaint: sore throat, possible strep Time Seen by Provider: 10/27/21 17:40 Mode of Arrival: Ambulatory Source of Information: Patient Limitations: No Limitations Description of Symptoms (Recalled from Triage Doc. by RN): PATIENT C/O SORE THROAT X 2 DAYS HEENT Symptoms (Recalled from RN notes): Yes Resp Symptoms (Recalled from RN notes): No Skin Symptoms (Recalled from RN notes): No MS Symptoms (Recalled from RN notes): No Functional Status (Recalled from RN notes): WNL - History of Present Illness Provider Complaint: Patient states that he has been having sore throat States for the last couple of days that has continued to get worse States that it feels like it did when he had strep throat so he came back in - Related Data Home Medications Medication Instructions Recorded Confirmed lisinopriL [Lisinopril 30mg Tablet] 30 mg PO DAILY 10/27/21 10/27/21 Previous Rx's Medication Instructions Recorded montelukast 10 mg tablet 10 mg PO DAILY 90 Days #90 tab 03/17/21 alprazolam 2 mg tablet 2 mg PO QID #120 tab 09/30/21 Cefdinir [Omnicef 300mg Capsule] 300 mg PO BID #20 cap 10/27/21 Allergies Allergy/AdvReac Type Severity Reaction Status Date / Time No Known Allergies Allergy Verified 09/30/21 10:51 - Worker's Comp Is this a Worker's Comp case?: No [facility] History - Hepatitis A Screen Drug use history?: No High risk sexual behaviors?: No History of sexually transmitted infection?: No Currently employed?: No Childcare worker?: No D
[2021-10-27 18:03] VITALS: BP 141/84; PULSE 67; RESP 19; TEMP 37.1; O2SAT 99
== END 2021-10-27 18:05 | disposition home or self-care (01) ==
PROVIDERS: Emergency Provider Nurse Practitioner; PCP Emergency Medicine
DX: J02.0 Streptococcal pharyngitis (principal); I10 Essential (primary) hypertension; F41.9 Anxiety disorder, unspecified; Z20.822 Contact with and (suspected) exposure to COVID-19
CPT/HCPCS: 87880; 99203; C9803; G0463; U0003; U0005

== ENCOUNTER → 2021-11-12 14:52 | Outpatient (CLI) | payer OTHER, SELFPAY | PROVIDERS: Visit Provider Nurse Practitioner | DX: Z20.822 Contact with and (suspected) exposure to COVID-19 (principal) | CPT/HCPCS: C9803; U0003; U0005 ==

== ENCOUNTER → 2021-11-17 14:49 | Outpatient (CLI) | payer OTHER, SELFPAY | PROVIDERS: Visit Provider Nurse Practitioner | DX: Z20.822 Contact with and (suspected) exposure to COVID-19 (principal) | CPT/HCPCS: C9803; U0003; U0005 ==

== ENCOUNTER 2021-12-27 20:22 | Emergency (ER) | payer OTHER, SELFPAY ==
[2021-12-27 20:25] VITALS: BP 141/89; PULSE 91; RESP 20; TEMP 37.1; O2SAT 98; BMI 29.9
[2021-12-27 20:38] LABS: UTC Strep Screen (Rapid) Positive (Negative)
--- NOTE | 2021-12-27 20:41 | HMH.EDUTC ---
[facility] [place] Clinical Impression: Strep throat Disposition: Home, Self-Care Condition on Discharge: Good Instructions: DI for Strep Throat Additional Instructions: Start antibiotics today be sure to take it as ordered with the full length of time although you should start feeling better in 24-48 hours. Change toothbrush and toothpaste 24-48 hours after starting antibiotics Tylenol or Motrin as needed for fever or pain Encourage fluids, water, Gatorade, Powerade, try cold fluids, popsicles, ice cream will make it feel better You are contagious for 24 hours. Avoid kissing anyone, no eating or drinking after anyone. You are contagious. Follow-up the ER for new or worsening symptoms or no noticeable improvement over the next 24-48 hours. Follow-up with PCP this week. Prescriptions: Azithromycin [Zithromax 250mg tab] 250 mg PO DIRECTED #4 tab Prescription Printed Referrals: Ralf Thomas MD [Primary Care Provider] - Time of Disposition: 20:43 Medical Decision Making - David Inquiry Pt receiving controlled substance: No - Lab Data Lab Results 12/27/21 20:36: Strep Scn Rapid Clinic Positive A [facility] [place] HPI - General Chief complaint: [facility] Stated complaint: sore throat,JORDAN Body aches Time Seen by Provider: 12/27/21 20:41 Mode of Arrival: Ambulatory Source of Information: Patient Limitations: No Limitations - History of Present Illness Provider Complaint: 51 yr old male presents for sore throat - Related Data Previous Rx's Medication Instructions Recorded [id number]-AU 5 ml PO Q6H PRN #118 ml 11/26/21 2 mg-30 mg-10 mg/5 mL oral syrup alprazolam 2 mg tablet 2 mg PO QID #120 tab 12/17/21 azithromycin 250 mg tablet See Rx Instructions PO .COMPLEX #6 12/17/21 tab cholecalciferol (vitamin D3) 25 1,000 unit PO DAILY 90 Days #90 cap 12/17/21 mcg (1,000 unit) capsule fluticasone propionate 50 1 spray INTRANASAL DAILY #16 g 12/17/21 mcg/actuation nasal spray,suspension lisinopril 30 mg tablet 30 mg PO DAILY #90 tab 12/17/21 montelukast 10 mg tablet 10 mg PO DAILY 90 Days #90 tab 12/17/21 methylprednisolone 4 mg tablets in See Rx Instructions PO PER PKG DIR 12/23/21 a dose pack #21 tab Azithromycin [Zithromax 250mg 250 mg PO DIRECTED #4 tab 12/27/21 tab] Allergies Allergy/AdvReac Type Severity Reaction Status Date / Time No Known Allergies Allergy Verified 12/17/21 12:10 [facility] History - Hepatitis A Screen Attestation statement:: This patient has been screened for Hepatitis A risk factors. I have reviewed the patient's past medical history: Yes Medical History: Reports:: Anxiety, Hypertension Denies:: Cancer, Diabetes Mellitus Type 1, Diabetes Mellitus Type 2, MRSA Other Medical History: Reports: Sinus Problems Laterality Cases: Bilateral: Other Other Surgeries: Yes: No Previous Surgery, Other Amputation: No Fractures: No Comment: Oral Surgery - Social History Smoking Status: Never smoker Alcohol Intake: never Substance Use Type: denies use Occupational Status: employed - Psychiatric History Pschychiatric History:: Reports:: Anxiety Family Hx:: Cancer, Hypertension ROS Obtained: Yes Systems reviewed as appropriate & no additional complaints - Constitutional Constitutional: Reports system reviewed and no additional complaints, except as docu, Denies fever(s) - Eyes Eyes: Reports system reviewed and no additional complaints, except as docu, Denies blurry vision - ENT Ears, Nose, Mouth, and Throat: Reports system reviewed and no additional complaints, except as docu, Reports sore throat - Cardiovascular Cardiovascular: Reports system reviewed and no additional complaints, except as docu, Denies chest pain - Respiratory Respiratory: Reports system reviewed and no additional complaints, except as docu, Denies chest congestion - Gastrointestinal Gastrointestingal: Reports: system reviewed and no additional
[2021-12-27 20:43] VITALS: BP 141/89; PULSE 91; RESP 20; TEMP 37.1; O2SAT 98
== END 2021-12-27 20:52 | disposition home or self-care (01) ==
PROVIDERS: Emergency Provider Nurse Practitioner Family; PCP Emergency Medicine
DX: J02.0 Streptococcal pharyngitis (principal); B95.0 Streptococcus, group A, as the cause of diseases classified elsewhere; I10 Essential (primary) hypertension; F41.9 Anxiety disorder, unspecified; Z79.51 Long term (current) use of inhaled steroids; Z79.82 Long term (current) use of aspirin; Z79.899 Other long term (current) drug therapy; Z82.49 Family history of ischemic heart disease and other diseases of the circulatory system; Z80.9 Family history of malignant neoplasm, unspecified
CPT/HCPCS: 87880; 99213; G0463

== ENCOUNTER 2022-03-02 09:50 | Emergency (ER) | payer OTHER, SELFPAY ==
[2022-03-02 09:51] VITALS: BP 129/88; PULSE 87; RESP 16; TEMP 36.8; O2SAT 95; BMI 29.0
--- NOTE | 2022-03-02 09:59 | HMH.EDDIZZ ---
ED Disposition Clinical Impression: Benign paroxysmal positional vertigo Qualifiers: Laterality: unspecified laterality Qualified Code(s): H81.10 - Benign paroxysmal vertigo, unspecified ear Disposition: Home, Self-Care Condition on Discharge: Fair Instructions: Vertigo Additional Instructions: And your blood work today your blood glucose (sugar) was somewhat high. This does not mean that you have diabetes. However, you should be checked for diabetes. I highly recommend that you follow-up with your primary care doctor within 1 week to have this checked. Please do not drive or operate heavy machinery while you are taking the medication for your dizziness. Please return to the emergency department immediately if you feel worse in any way. Prescriptions: Promethazine HCl [Phenergan 25mg tab] 25 mg PO Q6H PRN #12 tab PRN Reason: Nausea And Vomiting Transmission Status: Pending to [facility] Referrals: Ralf Thomas MD [Primary Care Provider] - - Critical Care Critical Care Time: No Attestation: On , the high probability of a clinically significant, sudden or life threatening deterioration of the following system(s) required my full and direct attention, intervention and personal management. The time I documented below is in addition to time spent performing reported procedures but includes the following listed in this critical care notation. Medical Decision Making - Medical Records Medical records reviewed: Yes: I reviewed the patient's medical records. - David Inquiry Pt receiving controlled substance: No Vital Signs: 03/02/22 09:51 Temperature 98.3 F Temperature Source Oral Pulse Rate [Right Radial] 87 Respiratory Rate 16 Blood Pressure [Right Arm] 129/88 Blood Pressure Mean [Right Arm] 101 Blood Pressure Source [Right Arm] Automatic Cuff Blood Pressure Position [Right Arm] Sitting 02 Sat by Pulse Oximetry 95 Oxygen Delivery Method Room Air - Lab Data Lab results reviewed: Yes: I reviewed the patient's lab results. Lab Results 03/02/22 10:05: WBC 12.7 H, RBC 5.03, Hgb 16.4, Hct 47.8, MCV 95.0 H, MCH 32.7 H, MCHC 34.4, RDW 13.4, Plt Count 333, MPV 9.3, Neut % (Auto) 38.8, Lymph % (Auto) 53.8 H, [place] % (Auto) 4.1, Eos % (Auto) 0.6, Baso % (Auto) 2.7 H, Neut # (Auto) 4.9, Lymph # (Auto) 6.8 H, [place] # (Auto) 0.5, Eos # (Auto) 0.1, Baso # (Auto) 0.4 H, Total Counted 100, Neutrophils % (Manual) 39 L, Lymphocytes % (Manual) 59 H, Monocytes % (Manual) 2, Platelet Estimate Normal, RBC Morphology Normal 03/02/22 10:05: Sodium 137, Potassium 3.2 L, Chloride 103, Carbon Dioxide 22, Anion Gap 15.2 H, BUN 14, Creatinine 1.10, Estimated Creat Clear 94, Estimated GFR 71, Est GFR ( Amer) 85, Glucose 195 H, Calcium 9.0, Total Bilirubin 0.8, AST 41, ALT 40, Alkaline Phosphatase 69, Total Protein 7.1, Albumin 4.1, Globulin 3.0, Albumin/Globulin Ratio 1.4 Result diagrams: 03/02/22 10:05 03/02/22 10:05 Orders (Tests/Meds): ED MEDICATIONS Discontinued Medications Generic Name Dose Route Start Last Admin Trade Name Willemq PRN Reason Stop Dose Admin Promethazine HCl 12.5 mg 03/02/22 10:07 03/02/22 10:09 Promethazine Hcl 25mg/Ml 1ml Vial IV 03/02/22 10:08 12.5 mg ONCE ONE Administration Sodium Chloride 25 ml 03/02/22 10:07 Sodium Chloride 0.9% 25ml Bag IV 03/02/22 10:08 ONCE ONE Medical Decision Narrative: The patient feels better after Phenergan. He has no neurologic symptoms with the exception of his vertigo. Therefore, I do not believe this vertigo to be secondary to central vertigo. It is most consistent with peripheral vertigo. He has a normal voice. He has no trouble swallowing. He has no difficulty with hot cold sensation. There is no evidence for Wallenberg syndrome. The patient is laboratory work-up showed some hyperglycemia. Of note that this is not a fasting blood glucose. However, I advised the patient of his hyperglycemia and recomme
[2022-03-02 10:05] VITALS: BP 129/88; PULSE 87; RESP 18; O2SAT 98
[2022-03-02 10:15] LABS: Basophils # 0.4 K/mm3 (0-0.2); Basophils % 2.7 % (0.1-2.0); Eosinophils # 0.1 K/mm3 (0.0-0.4); Eosinophils % 0.6 % (0.1-12.0); Hematocrit 47.8 % (42.0-52.0); Hemoglobin 16.4 g/dL (14.1-18.0); Lymphocytes # 6.8 K/mm3 (0.7-4.5); Lymphocytes % 53.8 % (10-50); Mean Corpuscular HGB Conc 34.4 g/dL (31.8-35.4); Mean Corpuscular Hemoglobin 32.7 pg (27.0-31.2); Mean Platelet Volume 9.3 fl (7.4-10.4); Monocytes # 0.5 K/mm3 (0.1-1.0); Monocytes % 4.1 % (1.7-9.3); Neutrophils # 4.9 K/mm3 (1.8-7.8); Neutrophils % 38.8 % (37.0-80.0); Platelet Count 333 K/mm3 (142-424); Red Blood Count 5.03 M/mm3 (4.60-6.20); Red Cell Distribution Width 13.4 % (11.5-17.5); White Blood Count 12.7 K/mm3 (4.8-10.8)
[2022-03-02 10:18] LABS: MANUAL DIFFERENTIAL MANUAL DIFFERENTIAL (MANUAL DIFF)
[2022-03-02 10:24] LABS: Alanine Aminotransferase 40 U/L (12-78); Albumin Level 4.1 g/dl (3.5-5.0); Albumin/Globulin Ratio 1.4 (1.1-1.8); Alkaline Phosphatase 69 U/L (38-126); Anion Gap 15.2 mEq/L (5-15); Aspartate Amino Transferase 41 U/L (17-59); Bilirubin,Total 0.8 mg/dl (0.2-1.3); Blood Urea Nitrogen 14 mg/dl (9-20); Carbon Dioxide 22 mmol/L (22.0-30.0); Chloride 103 mmol/L (98-107); Creatinine Clearance Estimated 94 mL/min (50-200); Estimated Glomerular Filt Rate 71 ml/min (>60); GFR (African American) 85 ML/MIN (>60); Glucose 195 mg/dl (74-100); Potassium 3.2 mmoL/L (3.5-5.1); Sodium 137 mmol/L (136-145); Total Protein,Serum 7.1 g/dl (6.3-8.2)
[2022-03-02 10:30] VITALS: BP 145/75; PULSE 82; RESP 18; O2SAT 100
[2022-03-02 10:41] LABS: Lymphocytes % 59 % (10-50); Monocytes % 2 % (2-9); Neutrophils % 39 % (42-76); Platelet Estimate Normal; RBC Morphology Normal; Total Cells Counted 100
[2022-03-02 11:01] VITALS: BP 143/86; PULSE 76; RESP 18; O2SAT 99
[2022-03-02 11:20] VITALS: BP 124/79; PULSE 78; RESP 14; TEMP 36.8; O2SAT 98
== END 2022-03-02 11:21 | disposition home or self-care (01) ==
PROVIDERS: Emergency Provider Emergency Medicine; PCP Emergency Medicine
DX: H81.10 Benign paroxysmal vertigo, unspecified ear (principal); I10 Essential (primary) hypertension; F41.9 Anxiety disorder, unspecified; Z79.899 Other long term (current) drug therapy
CPT/HCPCS: 80053; 85007; 85025; 96374; 99284

== ENCOUNTER 2022-04-06 17:54 | Emergency (ER) | payer OTHER, SELFPAY ==
--- NOTE | 2022-04-06 18:56 | HMH.EDUTC ---
[facility] [place]position Clinical Impression: BPPV (benign paroxysmal positional vertigo) Qualifiers: Laterality: left Qualified Code(s): H81.12 - Benign paroxysmal vertigo, left ear Otitis media Qualifiers: Otitis media type: suppurative Chronicity: acute Laterality: bilateral Recurrence: non-recurrent Spontaneous tympanic membrane rupture: without spontaneous rupture Qualified Code(s): H66.003 - Acute suppurative otitis media without spontaneous rupture of ear drum, bilateral Disposition: Home, Self-Care Condition on Discharge: Good Instructions: Middle Ear Infection, DI for Benign Paroxysmal Positional Vertigo Additional Instructions: Drink plenty of fluids. Take tylenol or ibuprofen for pain or fever. Take the medications as directed. Follow up with your regular doctor. GO TO THE ER FOR ANY WORSENING SYMPTOMS The meclizine (antivert) will make you drowsy, so don't drive or operate heavy machinery after taking it. It may help your dizziness symptoms though. Prescriptions: Meclizine HCl [Meclizine 25mg Tab] 25 mg PO Q6HP PRN #30 tab PRN Reason: Dizziness Transmission Status: Received by [facility] Amoxicillin [Amoxicillin 875MG Tab] 875 mg PO Q12H #20 tab Transmission Status: Received by [facility] methylPREDNISolone [Medrol] 4 mg PO DIRECTED 6 Days #21 packet Transmission Status: Received by [facility] Referrals: Ralf Thomas MD [Primary Care Provider] - Time of Disposition: 18:59 Medical Decision Making - Medical Records Medical records reviewed: No: I reviewed the patient's medical records. - David Inquiry Pt receiving controlled substance: No Vital Signs: 04/06/22 18:59 04/06/22 19:13 Temperature 97.9 F 97.9 F Temperature Source Oral Pulse Rate 73 Pulse Rate [Left Radial] 73 Respiratory Rate 17 17 Blood Pressure 160/100 H Blood Pressure [Right Arm] 160/100 H Blood Pressure Mean [Right Arm] 120 02 Sat by Pulse Oximetry 97 [facility] [place] HPI - General Stated complaint: dizzy and L ear ache Time Seen by Provider: 04/06/22 18:56 - History of Present Illness Provider Complaint: He c/o left ear pain and pressure and intermittent dizziness that started this am. He denies fever and chills. He has had similar episodes in the past and he was diagnosed with an ear infection and vertigo. He denies chest pain and other complaints. - Related Data Previous Rx's Medication Instructions Recorded cholecalciferol (vitamin D3) 25 1,000 unit PO DAILY 90 Days #90 cap 12/17/21 mcg (1,000 unit) capsule fluticasone propionate 50 1 spray INTRANASAL DAILY #16 g 12/17/21 mcg/actuation nasal spray,suspension lisinopril 30 mg tablet 30 mg PO DAILY #90 tab 12/17/21 montelukast 10 mg tablet 10 mg PO DAILY 90 Days #90 tab 12/17/21 alprazolam 2 mg tablet 2 mg PO QID #120 tab 03/03/22 cefdinir 300 mg capsule 300 mg PO BID #14 cap 03/03/22 methylprednisolone 4 mg tablets in See Rx Instructions PO PER PKG DIR 03/03/22 a dose pack #21 tab Amoxicillin [Amoxicillin 875MG 875 mg PO Q12H #20 tab 04/06/22 Tab] Meclizine HCl [Meclizine 25mg Tab] 25 mg PO Q6HP PRN #30 tab 04/06/22 methylPREDNISolone [Medrol] 4 mg PO DIRECTED 6 Days #21 04/06/22 packet Allergies Allergy/AdvReac Type Severity Reaction Status Date / Time No Known Allergies Allergy Verified 03/03/22 14:10 [facility] History - Hepatitis A Screen Attestation statement:: This patient has been screened for Hepatitis A risk factors. I have reviewed the patient's past medical history: Yes Medical History: Reports:: Anxiety, Hypertension Denies:: Cancer, Diabetes Mellitus Type 1, Diabetes Mellitus Type 2, MRSA Other Medical History: Reports: Sinus Problems Laterality Cases: Bilateral: Other Other Surgeries: Yes: No Previous Surgery, Other Amputation: No Fractures: No Comment: Oral Surgery - Social History Smoking Status: Never smoker Alcohol Intake:
[2022-04-06 18:59] VITALS: BP 160/100; PULSE 73; RESP 17; TEMP 36.6; O2SAT 97; BMI 27.3
[2022-04-06 19:13] VITALS: BP 160/100; PULSE 73; RESP 17; TEMP 36.6
== END 2022-04-06 19:14 | disposition home or self-care (01) ==
PROVIDERS: Emergency Provider Nurse Practitioner Family; PCP Emergency Medicine
DX: H81.12 Benign paroxysmal vertigo, left ear (principal); H66.003 Acute suppurative otitis media without spontaneous rupture of ear drum, bilateral
CPT/HCPCS: 99212; G0463

== ENCOUNTER 2022-04-29 18:25 | Emergency (ER) | payer OTHER, SELFPAY ==
[2022-04-29 18:51] VITALS: BP 164/94; PULSE 82; RESP 14; TEMP 37.1; O2SAT 98; BMI 28.1
--- NOTE | 2022-04-29 19:05 | HMH.EDUTC ---
[facility] [place] Disposition Clinical Impression: Viral syndrome Disposition: Home, Self-Care Condition on Discharge: Good Instructions: DI for COVID-19 (Suspected or Confirmed ), Preventing the Spread of Coronavirus Discharge Instructions Additional Instructions: Drink plenty of fluids. Take tylenol or ibuprofen for pain or fever. Take the medications as directed. Follow up with your regular doctor. GO TO THE ER FOR ANY WORSENING SYMPTOMS Prescriptions: Ondansetron [Zofran 4mg ODT] 4 mg PO Q8HP PRN #20 tab PRN Reason: Nausea Transmission Status: Received by [facility] Benzonatate [Benzonatate 100mg cap] 100 mg PO TIDP PRN #30 cap PRN Reason: Cough Transmission Status: Received by [facility] methylPREDNISolone [Medrol] 4 mg PO DIRECTED 6 Days #21 packet Transmission Status: Received by [facility] Referrals: Ralf Thomas MD [Primary Care Provider] - Time of Disposition: 19:44 Medical Decision Making - Medical Records Medical records reviewed: No: I reviewed the patient's medical records. - David Inquiry Pt receiving controlled substance: No Vital Signs: 04/29/22 18:51 04/29/22 19:48 Temperature 98.7 F 98.7 F Temperature Source Oral Pulse Rate 82 Pulse Rate [Left] 82 Respiratory Rate 14 14 Blood Pressure 164/94 H Blood Pressure [Right Arm] 164/94 H Blood Pressure Mean [Right Arm] 117 02 Sat by Pulse Oximetry 98 - Lab Data Lab results reviewed: Yes: I reviewed the patient's lab results. Lab Results 04/29/22 18:44: Group A Strep Rapid Negative Orders (Tests/Meds): ORDERS Category Date Time Status Covid-19 Nasal PCR ([facility]) Routine Lab 04/29/22 18:44 Received Strep Screen Confirmation Stat Micro 04/29/22 18:44 Received [facility] [place] HPI - General Stated complaint: chills,sore throat,JORDAN Body aches Time Seen by Provider: 04/29/22 19:05 Description of Symptoms (Recalled from Triage Doc. by RN): patient comes in with complaints of body aches, chills, sore throat. HEENT Symptoms (Recalled from RN notes): Yes Resp Symptoms (Recalled from RN notes): Yes Skin Symptoms (Recalled from RN notes): No MS Symptoms (Recalled from RN notes): No Functional Status (Recalled from RN notes): wnl - History of Present Illness Provider Complaint: He states that he has had a sore throat, chills, body aches, and a dry cough. - Related Data Previous Rx's Medication Instructions Recorded cholecalciferol (vitamin D3) 25 1,000 unit PO DAILY 90 Days #90 cap 12/17/21 mcg (1,000 unit) capsule fluticasone propionate 50 1 spray INTRANASAL DAILY #16 g 12/17/21 mcg/actuation nasal spray,suspension lisinopril 30 mg tablet 30 mg PO DAILY #90 tab 12/17/21 montelukast 10 mg tablet 10 mg PO DAILY 90 Days #90 tab 12/17/21 alprazolam 2 mg tablet 2 mg PO QID #120 tab 03/03/22 methylprednisolone 4 mg tablets in See Rx Instructions PO PER PKG DIR 03/03/22 a dose pack #21 tab Meclizine HCl [Meclizine 25mg Tab] 25 mg PO Q6HP PRN #30 tab 04/06/22 methylPREDNISolone [Medrol] 4 mg PO DIRECTED 6 Days #21 04/06/22 packet cefdinir 300 mg capsule 300 mg PO BID #14 cap 04/09/22 Benzonatate [Benzonatate 100mg 100 mg PO TIDP PRN #30 cap 04/29/22 cap] Ondansetron [Zofran 4mg ODT] 4 mg PO Q8HP PRN #20 tab 04/29/22 methylPREDNISolone [Medrol] 4 mg PO DIRECTED 6 Days #21 04/29/22 packet Allergies Allergy/AdvReac Type Severity Reaction Status Date / Time No Known Allergies Allergy Verified 03/03/22 14:10 - Worker's Comp Is this a Worker's Comp case?: No [facility] History - Hepatitis A Screen Attestation statement:: This patient has been screened for Hepatitis A risk factors. I have reviewed the patient's past medical history: Yes Medical History: Reports:: Anxiety, Hypertension Denies:: Cancer, Diabetes Mellitus Type 1, Diabetes Mellitus Type 2, MRSA Other Medical History: Reports: Sinus Problems Laterality
[2022-04-29 19:33] LABS: Strep Scrn Group A (Rapid) Negative (Negative)
[2022-04-29 19:48] VITALS: BP 164/94; PULSE 82; RESP 14; TEMP 37.1
== END 2022-04-29 19:48 | disposition home or self-care (01) ==
PROVIDERS: Emergency Provider Nurse Practitioner Family; PCP Emergency Medicine
DX: U07.1 COVID-19 (principal); I10 Essential (primary) hypertension
CPT/HCPCS: 87430; 99212; C9803; G0463; U0003; U0005

== ENCOUNTER 2022-06-25 14:15 | Emergency (ER) | payer OTHER, SELFPAY ==
--- NOTE | 2022-06-25 14:24 | EXP.UTC ---
Discharge Plan Disposition Patient Disposition: Home, Self-Care Condition: Good Prescriptions Prescriptions: New azithromycin [Zithromax] 250 mg tablet 250 mg PO UD DOSE PK Qty: 6 0RF Rx Instructions: Take two (2) tablets today, then one (1) tablet days #2 thru #5 methylprednisolone 4 mg Tablets,Dose Pack 4 mg PO DIRECTED Qty: 21 0RF No Action cholecalciferol (vitamin D3) 25 mcg (1,000 unit) capsule 1,000 unit PO DAILY 90 Days Qty: 90 3RF Rx Instructions: administer with meals lisinopril 30 mg tablet 30 mg PO DAILY Qty: 90 1RF Rx Instructions: TAKE ONE TABLET BY MOUTH ONCE A DAY FOR BLOOD PRESSURE montelukast 10 mg tablet 10 mg PO DAILY 90 Days Qty: 90 3RF fluticasone propionate [Flonase Allergy Relief] 50 mcg/actuation spray,suspension 1 spray INTRANASAL DAILY Qty: 16 2RF Rx Instructions: administer into each nostril alprazolam 2 mg tablet 2 mg PO QID Qty: 120 2RF ondansetron 4 MG tablet,disintegrating 4 mg PO Q8HP PRN (Reason: Nausea) Qty: 20 0RF meclizine 25 MG tablet,chewable 25 mg PO Q6HP PRN (Reason: Dizziness) Qty: 30 0RF Referrals Follow up/Referrals: Juan Bernal APRN [Emergency Provider] - See instructions Ralf Thomas MD [Primary Care Provider] - See instructions Activity Restrictions/Add. Instructions Additional Instructions/Restrictions: Drink plenty of fluids. Take tylenol or ibuprofen for pain or fever. Take the medications as directed. Follow up with your regular doctor. GO TO THE ER FOR ANY WORSENING SYMPTOMS Quarantine until you know the results of your covid-19 test. Notify your school or workplace of your results and follow their instructions regarding return to work/school. Clinical Impressions Clinical Impression: Upper respiratory infection Instructions Patient Instructions: DI for Sinusitis Discharge ED Provider: Juan Bernal [facility] General Stated complaint: sore throat, sinus Time Seen by Provider: 06/25/22 14:24 History of Present Illness Provider Complaint: He states that he has had sinus congestion and ear pain for the past 3 days. Related Data Previous Rx's Medication Instructions Recorded cholecalciferol (vitamin D3) 25 1,000 unit PO DAILY 90 days #90 12/17/21 mcg (1,000 unit) capsule caps fluticasone propionate 50 1 spray intranasal DAILY #16 grams 12/17/21 mcg/actuation nasal spray,suspension (Flonase Allergy Relief) lisinopril 30 mg tablet 30 mg PO DAILY Hypertension #90 12/17/21 tabs montelukast 10 mg tablet 10 mg PO DAILY Allergy symptoms 90 12/17/21 days #90 tabs meclizine 25 mg chewable tablet 25 mg PO Q6HP PRN Dizziness #30 04/06/22 tabs ondansetron 4 mg disintegrating 4 mg PO Q8HP PRN Nausea #20 tabs 04/29/22 tablet alprazolam 2 mg tablet 2 mg PO QID Anxiety #120 tabs 06/09/22 azithromycin 250 mg tablet 250 mg PO UD DOSE PK #6 tabs 06/25/22 (Zithromax) methylprednisolone 4 mg tablets in 4 mg PO DIRECTED #21 tabs 06/25/22 a dose pack Allergies Allergy/AdvReac Type Severity Reaction Status Date / Time No Known Allergies Allergy Verified 06/25/22 14:39 [facility] Social History Smoking Status: Never smoker alcohol intake: never substance use type: denies use current occupational status: employed Travel in the last 8 weeks: None ROS Obtained: Yes All systems reviewed & no additional complaints except as documented Constitutional Constitutional: Reports system reviewed and no additional complaints, except as documented, Denies chills and Denies fever(s) Eyes Eyes: Denies eye discharge ENT Ears, Nose, Mouth, and Throat: Denies dysphagia, Reports sore throat and Denies throat swelling Cardiovascular Cardiovascular: Denies chest pain and Denies dyspnea Respiratory Respiratory: Denies chest congestion, Denies cough and Denies dyspnea Gastrointestinal Gastrointesti
[2022-06-25 14:31] VITALS: BP 145/90; PULSE 72; RESP 16; TEMP 36.9; O2SAT 99; BMI 28.1
[2022-06-25 14:52] LABS: UTC Strep Screen (Rapid) Negative (Negative)
[2022-06-25 15:25] VITALS: BP 145/90; PULSE 72; RESP 16; TEMP 36.9
[2022-06-26 19:30] LABS: Coronavirus 19, PCR Not Detected (NotDetected); Influenza A, PCR Not Detected (NotDetected); Influenza B, PCR Not Detected (NotDetected)
== END 2022-06-25 15:26 | disposition home or self-care (01) ==
PROVIDERS: Emergency Provider Nurse Practitioner Family; PCP Emergency Medicine
DX: J06.9 Acute upper respiratory infection, unspecified (principal)
CPT/HCPCS: 87880; 99212; C9803; G0463; U0003; U0005

== ENCOUNTER 2023-01-05 15:41 | Emergency (ER) | payer OTHER, SELFPAY ==
[2023-01-05 16:25] VITALS: BP 149/111; PULSE 93; RESP 22; TEMP 36.9; O2SAT 99; BMI 27.3
[2023-01-05 16:36] LABS: UTC Strep Screen (Rapid) Positive (Negative)
--- NOTE | 2023-01-05 17:06 | EXP.UTC ---
Discharge Plan Disposition Patient Disposition: Home, Self-Care Condition: Good Prescriptions Prescriptions: New azithromycin [Zithromax Z-Justo] 250 mg tablet See Rx Instructions .ROUTE .COMPLEX 5 Days Qty: 6 0RF Rx Instructions: For 250 mg dose pack: take 500 mg today (day 1), then 250 mg for 4 days (days 2-5) No Action cholecalciferol (vitamin D3) 25 mcg (1,000 unit) capsule 1,000 unit PO DAILY 90 Days Qty: 90 3RF Rx Instructions: administer with meals montelukast 10 mg tablet 10 mg PO DAILY 90 Days Qty: 90 3RF methylprednisolone [Medrol (Justo)] 4 mg tablets,dose pack See Rx Instructions PO PER PKG DIR Qty: 21 0RF Rx Instructions: PO PER PKG DIR azithromycin [Zithromax Z-Justo] 250 mg tablet See Rx Instructions PO .COMPLEX Qty: 6 0RF Rx Instructions: For 250 mg dose pack: take 500 mg today (day 1), then 250 mg for 4 days (days 2-5) PO alprazolam 2 mg tablet 2 mg PO QID Qty: 120 2RF fluticasone propionate 50 mcg/actuation spray,suspension See Rx Instructions .ROUTE .COMPLEX Qty: 16 3RF Dose Instruction: USE 1 SPRAY IN EACH NOSTRIL EVERY DAY Rx Instructions: USE 1 SPRAY IN EACH NOSTRIL EVERY DAY lisinopril 30 mg tablet See Rx Instructions .ROUTE .COMPLEX Qty: 90 2RF Dose Instruction: TAKE ONE TABLET BY MOUTH ONCE A DAY FOR BLOOD PRESSURE Rx Instructions: TAKE ONE TABLET BY MOUTH ONCE A DAY FOR BLOOD PRESSURE meclizine 25 mg tablet 25 mg PO DAILY PRN (Reason: dizziness) Qty: 30 2RF Referrals Follow up/Referrals: Ralf Thomas MD [Primary Care Provider] - See instructions Activity Restrictions/Add. Instructions Additional Instructions/Restrictions: *Monitor Temp, Over the counter Motrin or Tylenol as directed/as needed Tylenol every 4 hours and Motrin every 6 hours (as long as your family doctor has told you that you can take it) for fever or pain. and straight to ER if unable to lower temp less than 101.0 after medication given *Warm salt water gargles may help to soothe the throat *Throat Lozenges? *Warm fluids like tea with honey may help to soothe the throat? *Sleep elevated *Humidifier/Vaporizer *If you did not take Penicillin shot or was unable to, start taking antibiotic immediately and make sure that you take it for the FULL length of time although you should start to feel better in 24-48 hours *change toothbrush and toothpaste 24-48 hours after starting to take antibiotics so you do not reinfect yourself Monitor Temp. Tylenol and/or Ibuprofen as needed. ER if fever is no less than 101 despite alternating Tylenol and Ibuprofen * Encourage fluids, water, Gatorade, powerade, pedialyte if infant/toddler/or child *Cold fluids, popsicles and ice cream may feel good on his throat Follow up IMMEDIATELY for new or worsening symptoms or no Noticeable improvement over the next 48-72 hours. 911 for difficulty breathing or swallowing Clinical Impressions Clinical Impression: Strep throat Instructions Patient Instructions: DI for Strep Throat, Strep Throat Discharge ED Provider: Savita Dang [facility] HPI General Stated complaint: sore throat, L ear Pain Mode of Arrival: Ambulatory Source of Information: Patient Limitations: No Limitations Time Seen by Provider: 01/05/23 17:06 Description of Symptoms (Recalled from Triage Doc. by RN): PATIENT C/O BILATERAL EAR PAIN, SORE THROAT AND CHILLS X 2 DAYS HEENT Symptoms (Recalled from RN notes): Yes Resp Symptoms (Recalled from RN notes): No Skin Symptoms (Recalled from RN notes): No MS Symptoms (Recalled from RN notes): No Functional Status (Recalled from RN notes): WNL History of Present Illness Provider Complaint: Patient states that he has been having bilateral ear pain, sore throat, feeling achy all over States that he wasnt sure if he may have strep throat or ear infection so he came in to get checked out Related Data Previous Rx's Med[facility]
[2023-01-05 17:08] VITALS: BP 149/111; PULSE 93; RESP 22; TEMP 36.9; O2SAT 99
== END 2023-01-05 17:27 | disposition home or self-care (01) ==
PROVIDERS: Emergency Provider Nurse Practitioner; PCP Emergency Medicine
DX: J02.0 Streptococcal pharyngitis (principal); H92.03 Otalgia, bilateral
CPT/HCPCS: 87880; 99212; 99214; G0463

== ENCOUNTER → 2023-01-18 07:56 | Outpatient (CLI) | payer OTHER, SELFPAY ==
--- NOTE | 2023-01-18 08:03 | CA_ITS ---
FINAL REPORT CLINICAL HISTORY: Hypertension FINDINGS: Aorta velocity: 63 cm/sec Right kidney: 9.98 cm. No evidence of hydronephrosis or mass. Right intrarenal RI: 0.51 Right renal artery velocity: 125 cm/sec. Right RAR (Renal artery-Aortic Ratio): 1.9 Left Kidney: 10.59 cm. No evidence of hydronephrosis or mass. Left intrarenal RI: 0.55 Left renal artery velocity: 90 cm/sec. Left RAR (Renal Artery-Aortic Ratio): 1.4 IMPRESSION: No evidence of significant renal artery stenosis. CT angiogram or postcontrast MR angiogram would be more sensitive for evaluation of possible renal artery stenosis. Reviewed, Interpreted and Dictated by Tressa Montgomery MD Transcribed by Chery Crawford Authenticated and [facility]
== END ==
PROVIDERS: PCP Emergency Medicine; Visit Provider Physician Assistant
DX: I10 Essential (primary) hypertension (principal)
CPT/HCPCS: 93976

== ENCOUNTER 2023-10-04 09:12 | Emergency (ER) | payer OTHER, SELFPAY ==
[2023-10-04 09:20] VITALS: BP 148/92; PULSE 108; RESP 18; TEMP 37.1; O2SAT 97; BMI 29.4
--- NOTE | 2023-10-04 09:26 | EXP.UTC ---
Discharge Plan Disposition Patient Disposition: Home, Self-Care Condition: Good Prescriptions Prescriptions: New azithromycin [Zithromax] 250 mg tablet 250 mg PO UD DOSE PK Qty: 6 0RF Rx Instructions: Take two (2) tablets today, then one (1) tablet days #2 thru #5 methylprednisolone 4 mg Tablets,Dose Pack 4 mg PO DIRECTED Qty: 21 0RF benzonatate [benzonatate] 100 mg capsule 100 mg PO TIDP PRN (Reason: Cough) Qty: 30 0RF No Action cholecalciferol (vitamin D3) 25 mcg (1,000 unit) capsule 1,000 unit PO DAILY 90 Days Qty: 90 3RF Rx Instructions: administer with meals fluticasone propionate 50 mcg/actuation spray,suspension See Rx Instructions .ROUTE .COMPLEX Qty: 16 3RF Dose Instruction: USE 1 SPRAY IN EACH NOSTRIL EVERY DAY Rx Instructions: USE 1 SPRAY IN EACH NOSTRIL EVERY DAY alprazolam 2 mg tablet 2 mg PO QID Qty: 120 2RF meclizine 25 mg tablet 25 mg PO DAILY PRN (Reason: dizziness) Qty: 30 2RF amlodipine 5 mg tablet See Rx Instructions .ROUTE .COMPLEX Qty: 90 2RF Dose Instruction: TAKE ONE TABLET BY MOUTH ONCE A DAY FOR HYPERTENSION Rx Instructions: TAKE ONE TABLET BY MOUTH ONCE A DAY FOR HYPERTENSION lisinopril 30 mg tablet See Rx Instructions .ROUTE .COMPLEX Qty: 90 2RF Dose Instruction: TAKE ONE TABLET BY MOUTH ONCE A DAY FOR BLOOD PRESSURE Rx Instructions: TAKE ONE TABLET BY MOUTH ONCE A DAY FOR BLOOD PRESSURE azelastine 137 mcg (0.1 %) aerosol,spray 2 spray intranasal BID Qty: 30 4RF Rx Instructions: administer into each nostril montelukast 10 mg tablet See Rx Instructions .ROUTE .COMPLEX Qty: 90 0RF Dose Instruction: TAKE ONE TABLET BY MOUTH ONCE A DAY FOR ALLERGY SYMPTOMS Rx Instructions: TAKE ONE TABLET BY MOUTH ONCE A DAY FOR ALLERGY SYMPTOMS Referrals Follow up/Referrals: Deann Graham PA [Primary Care Provider] - See instructions Activity Restrictions/Add. Instructions Additional Instructions/Restrictions: Drink plenty of fluids. Take tylenol or ibuprofen for pain or fever. Take the medications as directed. Follow up with your regular doctor. GO TO THE ER FOR ANY WORSENING SYMPTOMS Don't start the oral steroids until tomorrow, since you had the shot here today. Clinical Impressions Clinical Impression: Acute viral syndrome, Sinusitis Instructions Patient Instructions: DI for Sinusitis, DI for Viral Syndrome, Methylprednisolone, Azithromycin, Dexamethasone Injection Discharge ED Provider: Juan Bernal [facility] [place] HPI General Stated complaint: sore throat,chills,body aches ,earache Time Seen by Provider: 10/04/23 09:26 History of Present Illness Provider Complaint: He states that for the past 2 days he has had sore throat, sinus congestion, nonproductive cough, and malaise. Related Data Previous Rx's Medication Instructions Recorded cholecalciferol (vitamin D3) 25 1,000 unit PO DAILY 90 days #90 12/17/21 mcg (1,000 unit) capsule caps meclizine 25 mg tablet 25 mg PO DAILY PRN dizziness #30 11/16/22 tabs fluticasone propionate 50 See Rx Instructions .Route 03/02/23 mcg/actuation nasal .COMPLEX #16 grams spray,suspension amlodipine 5 mg tablet See Rx Instructions .Route 04/01/23 .COMPLEX #90 tabs lisinopril 30 mg tablet See Rx Instructions .Route 04/01/23 .COMPLEX #90 tabs azelastine 137 mcg (0.1 %) nasal 2 spray intranasal BID #30 mL 08/09/23 spray aerosol alprazolam 2 mg tablet 2 mg PO QID Anxiety #120 tabs 08/25/23 montelukast 10 mg tablet See Rx Instructions .Route 08/26/23 .COMPLEX #90 tabs azithromycin 250 mg tablet 250 mg PO UD DOSE PK #6 tabs 10/04/23 (Zithromax) benzonatate 100 mg capsule 100 mg PO TIDP PRN Cough #30 caps 10/04/23 methylprednisolone 4 mg tablets in 4 mg PO DIRECTED #21 tabs 10/04/23 a dose pack Allergies Allergy/AdvReac Type Severity Reaction Status Date / Time No Known Allergies
[2023-10-04 09:36] LABS: UTC Influenza A Antigen Negative (Negative); UTC Influenza B Antigen Negative (Negative)
[2023-10-04 09:50] LABS: UTC Strep Screen (Rapid) Negative (Negative)
[2023-10-04 10:27] VITALS: BP 151/91; PULSE 108; RESP 18; TEMP 37.1; O2SAT 97
== END 2023-10-04 10:27 | disposition home or self-care (01) ==
PROVIDERS: Emergency Provider Nurse Practitioner Family; PCP Physician Assistant
DX: U07.1 COVID-19 (principal); J01.90 Acute sinusitis, unspecified; R07.0 Pain in throat; H92.09 Otalgia, unspecified ear; R09.81 Nasal congestion; R05.9 Cough, unspecified; M79.18 Myalgia, other site
CPT/HCPCS: 87635; 87804; 87880; 96372; 99212; 99214; G0463

== ENCOUNTER 2023-11-08 18:08 | Outpatient (CLI) | payer OTHER, SELFPAY | END 2023-11-08 23:59 | LOC: LAB.DROPOF 18:08 | PROVIDERS: PCP Student in an Organized Health Care Education/Training Program; Visit Provider Student in an Organized Health Care Education/Training Program | DX: J02.9 Acute pharyngitis, unspecified (principal) | CPT/HCPCS: 87070 ==

== ENCOUNTER 2023-11-22 21:18 | Outpatient (CLI) | payer OTHER, SELFPAY ==
[2023-11-22 19:04] LABS: Basophils # 0.1 K/mm3 (0-0.2); Basophils % 0.8 % (0.1-2.0); Eosinophils # 0.1 K/mm3 (0.0-0.4); Eosinophils % 0.5 % (0.1-12.0); Hematocrit 46.4 % (42.0-52.0); Hemoglobin 15.9 g/dL (14.1-18.0); Lymphocytes # 4.8 K/mm3 (0.7-4.5); Lymphocytes % 48.9 % (10-50); Mean Corpuscular HGB Conc 34.2 g/dL (31.8-35.4); Mean Corpuscular Hemoglobin 32.1 pg (27.0-31.2); Mean Corpuscular Volume 93.7 fl (80-94); Mean Platelet Volume 11.3 fl (7.4-10.4); Monocytes # 0.5 K/mm3 (0.1-1.0); Monocytes % 4.9 % (1.7-9.3); Neutrophils # 4.4 K/mm3 (1.8-7.8); Neutrophils % 44.9 % (37.0-80.0); Platelet Count 289 K/mm3 (142-424); Red Blood Count 4.95 M/mm3 (4.60-6.20); Red Cell Distribution Width 13.8 % (11.5-17.5); White Blood Count 9.7 K/mm3 (4.8-10.8)
[2023-11-22 19:40] LABS: Alanine Aminotransferase 69 U/L (12-78); Albumin/Globulin Ratio 1.3 (1.1-1.8); Alkaline Phosphatase 84 U/L (38-126); Anion Gap 14.5 mEq/L (5-15); Aspartate Amino Transferase 38 U/L (17-59); Bilirubin,Total 0.6 mg/dl (0.2-1.3); Blood Urea Nitrogen 10 mg/dl (9-20); Calcium 9.5 mg/dl (8.4-10.2); Carbon Dioxide 21 mmol/L (22.0-30.0); Chloride 105 mmol/L (98-107); Estimated Glomerular Filt Rate 63 ml/min (>60); GFR (African American) 77 ML/MIN (>60); Glucose 128 mg/dl (74-100); Potassium 4.5 mmoL/L (3.5-5.1); Sodium 136 mmol/L (136-145)
[2023-11-22 19:59] LABS: 25-OH Vitamin D, Total 18.9 ng/mL (30-100)
[2023-11-22 23:55] LABS: Creatinine,Urine Random 256 mg/dL (Not Estab.); Microalbumin < 6.000 mg/L (0-16.7)
== END 2023-11-22 23:59 ==
LOC: LAB.DROPOF 21:19
PROVIDERS: PCP Internal Medicine; Visit Provider Internal Medicine
DX: R53.83 Other fatigue (principal); F41.1 Generalized anxiety disorder; I10 Essential (primary) hypertension; E87.1 Hypo-osmolality and hyponatremia; E55.9 Vitamin D deficiency, unspecified; Z79.899 Other long term (current) drug therapy
CPT/HCPCS: 80053; 82043; 82306; 82570; 83036; 84443; 85025

== ENCOUNTER 2023-12-31 19:56 | Outpatient (CLI) | payer OTHER, SELFPAY | END 2023-12-31 23:59 | LOC: LAB.DROPOF 19:56 | PROVIDERS: PCP Student in an Organized Health Care Education/Training Program; Visit Provider Student in an Organized Health Care Education/Training Program | DX: R07.0 Pain in throat (principal); H92.02 Otalgia, left ear; J34.89 Other specified disorders of nose and nasal sinuses; R53.82 Chronic fatigue, unspecified | CPT/HCPCS: 87635 ==

== ENCOUNTER 2024-01-26 07:38 | Outpatient (CLI) | payer OTHER, SELFPAY ==
--- NOTE | 2024-01-26 07:38 | CT_ITS ---
FINAL REPORT TECHNIQUE: Thin section axial CT images of the facial bones and sinuses were obtained without contrast. Coronal reformatted images were also obtained.This study was performed with techniques to keep radiation doses as low as reasonably achievable, (ALARA). Individualized dose reduction techniques using automated exposure control or adjustment of mA and/or kV according to the patient''''s size were employed. CLINICAL HISTORY: Sinusitis COMPARISON: 12/11/2019 FINDINGS: There is mild mucosal thickening of the left maxillary sinus. No other mucosal thickening is noted. No fluid levels are identified. The ostiomeatal units have an unremarkable appearance. There is rightward nasal septal deviation. No fracture or acute bony abnormality is identified. IMPRESSION: Mild mucosal thickening left maxillary sinus. Rightward nasal septal deviation. Reviewed, Interpreted and Dictated by Carmine Ward III, MD Transcribed by Lroena Hall Authenticated and . [facility]
== END 2024-01-26 23:59 ==
LOC: RAD 07:38
PROVIDERS: PCP Internal Medicine; Visit Provider Nurse Practitioner
DX: J32.9 Chronic sinusitis, unspecified (principal)
CPT/HCPCS: 70486

== ENCOUNTER 2024-09-19 09:23 | Outpatient (CLI) | payer OTHER, SELFPAY ==
[2024-09-19 18:11] LABS: Coronavirus 19, PCR Not Detected (NotDetected); Influenza A, PCR Not Detected (NotDetected); Influenza B, PCR Not Detected (NotDetected)
== END 2024-09-19 23:59 | disposition home or self-care (01) ==
LOC: LAB.DROPOF 09-20 07:23
PROVIDERS: PCP Student in an Organized Health Care Education/Training Program; Visit Provider Student in an Organized Health Care Education/Training Program
DX: R09.81 Nasal congestion (principal); J02.9 Acute pharyngitis, unspecified
CPT/HCPCS: 87070; 87636

== ENCOUNTER 2024-09-30 11:03 | Outpatient (CLI) | payer OTHER, SELFPAY ==
[2024-09-30 11:20] LABS: Basophils # 0.1 K/mm3 (0-0.2); Eosinophils # 0.1 K/mm3 (0.0-0.4); Hematocrit 42.6 % (42.0-52.0); Hemoglobin 15.1 g/dL (14.1-18.0); Lymphocytes # 4.5 K/mm3 (0.7-4.5); Lymphocytes % 42.3 % (10-50); Mean Corpuscular HGB Conc 35.5 g/dL (31.8-35.4); Mean Corpuscular Hemoglobin 31.8 pg (27.0-31.2); Mean Corpuscular Volume 89.5 fl (80-94); Mean Platelet Volume 8.5 fl (7.4-10.4); Monocytes # 0.5 K/mm3 (0.1-1.0); Monocytes % 4.5 % (1.7-9.3); Neutrophils # 5.5 K/mm3 (1.8-7.8); Neutrophils % 51.2 % (37.0-80.0); Platelet Count 315 K/mm3 (142-424); Red Blood Count 4.76 M/mm3 (4.60-6.20); Red Cell Distribution Width 13.8 % (11.5-17.5); White Blood Count 10.6 K/mm3 (4.8-10.8)
[2024-09-30 13:31] LABS: Chloride 106 mmol/L (98-107)
[2024-09-30 13:32] LABS: Albumin Level 4.1 g/dl (3.5-5.0); Potassium 4.6 mmoL/L (3.5-5.1); Sodium 139 mmol/L (136-145)
[2024-09-30 13:34] LABS: Alanine Aminotransferase 49 U/L (12-78); Albumin/Globulin Ratio 1.4 (1.1-1.8); Alkaline Phosphatase 86 U/L (38-126); Anion Gap 13.6 mEq/L (5-15); Aspartate Amino Transferase 32 U/L (17-59); Bilirubin,Total 0.5 mg/dl (0.2-1.3); Blood Urea Nitrogen 14 mg/dl (9-20); Carbon Dioxide 24 mmol/L (22.0-30.0); Estimated Glomerular Filt Rate 58 ml/min (>60); GFR (African American) 70 ML/MIN (>60); Total Protein,Serum 7.1 g/dl (6.3-8.2)
[2024-09-30 13:35] LABS: Calcium 9.5 mg/dl (8.4-10.2); Glucose 145 mg/dl (74-100)
== END 2024-09-30 23:59 | disposition home or self-care (01) ==
PROVIDERS: PCP Internal Medicine; Visit Provider Nurse Practitioner
DX: J34.89 Other specified disorders of nose and nasal sinuses (principal); R06.83 Snoring
CPT/HCPCS: 36415; 80053; 85025

== ENCOUNTER 2024-12-19 11:57 | Outpatient (CLI) | payer OTHER, SELFPAY ==
[2024-12-19 20:55] LABS: Human Rhinovirus Not Detected (NotDetected); Influenza A, PCR Not Detected (NotDetected); Influenza B, PCR Not Detected (NotDetected); Respiratory Syncytial Virus Not Detected (NotDetected)
[2024-12-20 03:51] LABS: Coronavirus 19, PCR Detected (NotDetected)
== END 2024-12-19 23:59 | disposition home or self-care (01) ==
LOC: LAB.DROPOF 12-21 11:58
PROVIDERS: PCP Internal Medicine; Visit Provider Nurse Practitioner
DX: R50.9 Fever, unspecified (principal); J02.9 Acute pharyngitis, unspecified; R09.81 Nasal congestion
CPT/HCPCS: 87631

== ENCOUNTER 2025-01-18 15:50 | Outpatient (CLI) | payer OTHER, SELFPAY ==
[2025-01-18 20:49] LABS: Alanine Aminotransferase 31 U/L (12-78); Albumin Level 4.4 g/dl (3.5-5.0); Albumin/Globulin Ratio 1.4 (1.1-1.8); Alkaline Phosphatase 65 U/L (38-126); Anion Gap 19.1 mEq/L (5-15); Aspartate Amino Transferase 25 U/L (17-59); Bilirubin,Total 0.9 mg/dl (0.2-1.3); Blood Urea Nitrogen 12 mg/dl (9-20); Calcium 9.7 mg/dl (8.4-10.2); Carbon Dioxide 20 mmol/L (22.0-30.0); Chloride 105 mmol/L (98-107); Chol/HDL Ratio 4.2 (1-3.5); Cholesterol 157 mg/dl (140-200); Estimated Glomerular Filt Rate 63 ml/min (>60); GFR (African American) 76 ML/MIN (>60); Globulin 3.2 g/dL (1.3-3.2); Glucose 106 mg/dl (74-100); HDL Cholesterol 37 mg/dl (40-60); Potassium 4.1 mmoL/L (3.5-5.1); Sodium 140 mmol/L (136-145); Total Protein,Serum 7.6 g/dl (6.3-8.2); Triglycerides 128 mg/dl (30-150); VLDL Cholesterol 26 mg/dL (0-40)
[2025-01-18 21:01] LABS: Direct LDL Cholesterol 77.45 mg/dL (100-129)
== END 2025-01-18 23:59 | disposition home or self-care (01) ==
LOC: LAB.DROPOF 01-19 11:17
PROVIDERS: PCP Family Medicine; Visit Provider Family Medicine
DX: I10 Essential (primary) hypertension (principal)
CPT/HCPCS: 80053; 80061

== ENCOUNTER 2025-03-19 14:54 | Outpatient (CLI) | payer OTHER, SELFPAY ==
[2025-03-19 21:04] LABS: Coronavirus 19, PCR Not Detected (NotDetected); Influenza A, PCR Not Detected (NotDetected); Influenza B, PCR Not Detected (NotDetected)
== END 2025-03-19 23:59 | disposition home or self-care (01) ==
LOC: LAB.DROPOF 03-20 10:32
PROVIDERS: PCP Family Medicine; Visit Provider Student in an Organized Health Care Education/Training Program
DX: J02.9 Acute pharyngitis, unspecified (principal); R05.9 Cough, unspecified
CPT/HCPCS: 87636

== ENCOUNTER 2025-04-19 01:44 | Emergency (ER) | payer OTHER, SELFPAY ==
--- NOTE | 2025-04-19 01:46 | HMH.EDGENADL ---
Discharge Plan Disposition Patient Disposition: Home, Self-Care Prescriptions Prescriptions: New methocarbamol 500 mg tablet 1,000 mg PO Q6H PRN (Reason: pain) Qty: 30 0RF lidocaine 5 % adhesive patch,medicated 1 patch topical DAILY PRN (Reason: pain) Qty: 30 0RF Rx Instructions: leave on most painful area for up to 12 hrs No Action azelastine 137 mcg (0.1 %) aerosol,spray 2 spray intranasal BID Qty: 30 4RF Rx Instructions: administer into each nostril amlodipine 5 mg tablet See Rx Instructions .ROUTE .COMPLEX Qty: 90 3RF Dose Instruction: TAKE ONE TABLET BY MOUTH ONCE A DAY FOR HYPERTENSION Rx Instructions: TAKE ONE TABLET BY MOUTH ONCE A DAY FOR HYPERTENSION cholecalciferol (vitamin D3) 250 mcg (10,000 unit) capsule 250 mcg PO DAILY Qty: 90 3RF alprazolam 2 mg tablet 2 mg PO QID Qty: 120 2RF guaifenesin 1,200 mg tablet extended release 12hr 1,200 mg PO BID Qty: 20 0RF fluticasone propionate 50 mcg/actuation spray,suspension See Rx Instructions .ROUTE .COMPLEX Qty: 16 2RF Dose Instruction: USE 1 SPRAY IN EACH NOSTRIL EVERY DAY Rx Instructions: USE 1 SPRAY IN EACH NOSTRIL EVERY DAY doxycycline hyclate 100 mg tablet 100 mg PO BID 10 Days Qty: 20 1RF lisinopril 30 mg tablet See Rx Instructions .ROUTE .COMPLEX Qty: 90 4RF Dose Instruction: TAKE 1 TABLET BY MOUTH EVERY DAY Rx Instructions: TAKE 1 TABLET BY MOUTH EVERY DAY montelukast 10 mg tablet 10 mg PO HS Qty: 90 4RF Referrals Follow up/Referrals: Tim Pappas MD [Primary Care Provider, Family Practice] - See instructions Activity Restrictions/Add. Instructions Additional Instructions/Restrictions: Please take Tylenol ibuprofen Robaxin and lidocaine patches as needed for pain. Please follow-up with your primary care provider. Please return to the emergency department if you develop any new or worsening symptoms or become concerned for your health. Clinical Impressions Clinical Impression: Chest wall pain Print Language Print Language: [place] Discharge ED Provider: Aubrey Crowley General Adult HPI General Chief complaint: PAIN Stated complaint: r chest muscle pain Time Seen by Provider: 04/19/25 01:46 History of Present Illness HPI narrative: 54-year-old male with history of obesity and hypertension presents for a couple weeks of chest wall pain. He reports he first noticed it when he was reaching in the attic repeatedly trying to get some birds out of his attic. It has been bothering him on and off since, but has been more constant in the last couple of days. He reports that his right sided. It is worsened with rotational movement or raising his arm. He has not taken anything for pain at home. Denies any central or left-sided chest pain, denies any shortness of breath, no reported cardiac history. Related Data Previous Rx's ?Medication ?Instructions ?Recorded azelastine 137 mcg (0.1 %) nasal 2 spray intranasal BID #30 mL 01/31/24 spray amlodipine 5 mg tablet See Rx Instructions .Route 11/08/24 .COMPLEX #90 tabs cholecalciferol (vitamin D3) 250 250 mcg PO DAILY #90 caps 11/08/24 mcg (10,000 unit) capsule fluticasone propionate 50 See Rx Instructions .Route 12/11/24 mcg/actuation nasal .COMPLEX #16 grams spray,suspension alprazolam 2 mg tablet 2 mg PO QID Anxiety #120 tabs 01/18/25 guaifenesin 1,200 mg tablet, 1,200 mg PO BID #20 tabs 03/19/25 extended release 12 hr doxycycline hyclate 100 mg tablet 100 mg PO BID 10 days #20 tabs 03/20/25 lisinopril 30 mg tablet See Rx Instructions .Route 04/02/25 .COMPLEX #90 tabs montelukast 10 mg tablet 10 mg PO HS #90 tabs 04/11/25 lidocaine 5 % topical patch 1 patch topical DAILY PRN pain #30 04/19/25 ea methocarbamol 500 mg tablet 1,000 mg (2 x 500 mg) PO Q6H PRN 04/19/25 pain #30 tabs Allergies Allergy/AdvReac Type Severity Reaction Status Date / Time No Known Allergies Allergy Verified 03/19/25 14:36 [facility] Disclaimer: The information contained in this section may have been updated after the patient was seen, as this information can be updated by other users. Medical History URI (upper respiratory infection) Benign paroxysmal positional vertigo Facial contusion Allergic rhinitis Overweight (BMI 25.0-29.9) Hypertension Vertigo Hyponatremia Surgical History No significant past surgical history Family History Other No significant family history Sinusitis Social History Smoking Status: Never smoker alcohol intake: never substance use type: denies use current occupational status: employed Travel in the last 8 weeks?: None Have you lived/traveled outside [place] in past 30 days?: No Contact w/someone who lives/traveled outside [place] past 30 days?: No Exposure to someone with infectious disease in past 14 days?: No Do you have a fever (greater than 100.4 F or 38 C)?: No Have you tested positive for COVID-19?: No Exposed to someone with COVID-19 in past 14 days?: No Do you have a sore throat?: No Do you have a cough?: No Do you have any weakness?: No Do you have any diarrhea?: No Are you experiencing any unusual bleeding?: No Do you have any muscle aches/pain?: No Do you have any abdominal pain?: No Are you experiencing loss of taste or smell?: No Other Medical History Have you received the Flu Vaccine for this season: Yes Have you received the Pneumonia Vaccine: No ROS Obtained: Yes All systems reviewed & no additional complaints except as documented Physical Exam General General appearance: alert and in no apparent distress Head Head exam: atraumatic and normocephalic Eye Eye exam: Present normal appearance, PERRL and EOMI ENT ENT exam: Present normal oropharynx and normal external ear exam Neck Neck exam: Present normal inspection and full ROM Chest Chest inspection: Present normal inspection and symmetric chest wall rise; Absent tenderness Respiratory Respiratory exam: Present normal lung sounds bilaterally; Absent respiratory distress Cardiovascular Cardiovascular exam: Present regular rate and normal rhythm Abdominal Exam Abdominal exam: Present soft; Absent distention, tenderness or guarding Extremities Exam Extremities exam: Present normal inspection; Absent edema or joint swelling Back Exam Back exam: Present normal inspection; Absent tenderness Neurological Exam Neurological exam: Present alert and oriented X3; Absent motor sensory deficit Psychiatric Psychiatric exam: Present normal affect and normal mood Skin Skin exam: Present warm, dry and normal color Lymphatic Lymphatic Findings: no adenopathy Medical Decision Making Medical Records Medical records reviewed: Yes I reviewed the patient's medical records. Screening: Per USPSTF and CDC recommendations, given the prevalence of disease in our region, it is our hospital?s policy to screen for HIV and viral Hepatitis for all patients aged 18 and over and those with ongoing risk factors. David Inquiry Pt receiving controlled substance: No David was queried for this patient: No Vital Signs: 04/19/25 01:56 04/19/25 02:04 04/19/25 02:18 Temperature 98.5 F 97.6 F 97.6 F Temperature Source Oral Pulse Rate 95 H 95 H Pulse Rate [Radial] 68 Respiratory Rate 16 16 18 Blood Pressure 109/78 L 146/107 H Blood Pressure [Right Arm] 163/116 H Blood Pressure Mean [Right Arm] 131 Blood Pressure Position Supine Blood Pressure Position [Right Arm] Sitting 02 Sat by Pulse Oximetry 98 99 Oxygen Delivery Method Room Air Room Air Lab Data Lab results reviewed: Yes I reviewed the patient's lab results. Orders (Tests/Meds): ED MEDICATIONS Discontinued Medications Generic Name Dose Route Start Last Admin Trade Name Freq PRN Reason Stop Dose Admin Acetaminophen 1,000 mg 04/19/25 01:55 04/19/25 02:06 Acetaminophen 500mg Tab PO 04/19/25 01:56 1,000 mg ONCE ONE Administration Ibuprofen 600 mg 04/19/25 01:55 04/19/25 02:05 Ibuprofen 600 Mg Tablet PO 04/19/25 01:56 600 mg ONCE ONE Administration Lidocaine 1 each 04/19/25 01:56 04/19/25 02:05 Lidocaine 5% Transdermal Patch TD 04/19/25 01:57 1 each ONCE ONE Administration Methocarbamol 1,000 mg 04/19/25 01:55 04/19/25 02:05 Methocarbamol 500mg Tablet PO 04/19/25 01:56 1,000 mg ONCE ONE Administration ORDERS Category Date Time Status CXR 2 view (NOT portable) [XR chest 2V] Stat Exams 04/19/25 01:55 Completed ECG Data Tracing #1: I reviewed this ECG and interpreted as documented below: Sinus rhythm, rate of 91, no ST or T wave changes, no evidence of arrhythmia. ECG initial impression date: 04/19/25 ECG initial impression time: 01:51 Medical Decision Narrative: 54-year-old male with history of hypertension and obesity presents right-sided chest wall pain for the last couple weeks, exacerbated by rotational movement and reaching his arm up. History was obtained via interactive discussion with patient. On arrival, patient is [afebrile, hemodynamically stable, satting appropriately, alert, oriented x4, GCS 15], moving all extremities spontaneously. Full physical exam performed and significant for no significant physical exam abnormality Differential includes but is not limited to rib fracture, muscle strain, pleurisy. Low concern for cardiac pathology or PE at this time given patient's history and exam. EKG was obtained which on my interpretation is normal sinus rhythm. I discussed with patient that we can perform blood work to evaluate for possible cardiac etiologies but he reports that he is not at all concerned about that and with her just to do a chest x-ray. 2 view chest x-ray was obtained and independently interpreted by me which shows no evidence of acute opacity, effusion, pneumothorax. He was given Tylenol ibuprofen Robaxin and lidocaine for pain control. He was discharged prescription for Robaxin and lidocaine patches. Procedures Risk/Benefits of Procedure(s) Were Explained: Yes Critical Care Critical Care Time Critical Care Time: No
--- NOTE | 2025-04-19 01:51 | ECG_ITS ---
APPROVED REPORT Exam: Resting ECG HR:91 bpm ECG Measurements Heart Rate [address] 172 P 37 QRSd 82 QRS 2 QT 340 T 26 QTc 388 Conclusion SINUS RHYTHM NORMAL ECG UNCONFIRMED REPORT Electronically signed by : LEXIE NASCIMENTO, 04/19/2025 06:13:12
--- NOTE | 2025-04-19 01:55 | XR_ITS ---
PROCEDURE INFORMATION: Exam: XR Chest Exam date and time: 04/19/2025 1:50 AM Age: 54 years old Clinical indication: Chest wall pain; Additional info: Right chest wall pain TECHNIQUE: Imaging protocol: Radiologic exam of the chest. Views: 2 views. COMPARISON: CR XR CHEST 2V 11/27/2019 3:46 PM FINDINGS: Lungs: The lungs appear clear. No focal areas of consolidation. Pleural spaces: No pleural effusions. Negative for pneumothorax. Heart/Mediastinum: Cardiac silhouette and pulmonary vasculature are within range of normal. Bones/joints: There is no evidence of acute fracture. IMPRESSION: Negative for an acute cardiopulmonary abnormality. Stable chest radiograph.
[2025-04-19 01:56] VITALS: BP 163/116; PULSE 68; RESP 16; TEMP 36.9; O2SAT 98; BMI 29.0
[2025-04-19 02:04] VITALS: BP 109/78; PULSE 95; RESP 16; TEMP 36.4; O2SAT 99
[2025-04-19] MEDS: METHOCARBAMOL 500MG TABLET 1000 MG PO (02:05)
[2025-04-19] MEDS: IBUPROFEN 600 MG TABLET PO (02:05)
[2025-04-19] MEDS: LIDOCAINE 5% TRANSDERMAL PATCH 1 EACH TD (02:05)
[2025-04-19] MEDS: ACETAMINOPHEN 500MG TAB 1000 MG PO (02:06)
[2025-04-19 02:18] VITALS: BP 146/107; PULSE 95; RESP 18; TEMP 36.4; O2SAT 99
== END 2025-04-19 02:19 | disposition home or self-care (01) ==
PROVIDERS: Emergency Provider Emergency Medicine; PCP Family Medicine
DX: R07.89 Other chest pain (principal)
CPT/HCPCS: 71046; 93005; 99284

== ENCOUNTER 2025-05-04 11:14 | Outpatient (CLI) | payer OTHER, SELFPAY ==
[2025-05-04 16:58] LABS: Alanine Aminotransferase 31 U/L (12-78); Albumin Level 4.5 g/dl (3.5-5.0); Albumin/Globulin Ratio 1.3 (1.1-1.8); Alkaline Phosphatase 86 U/L (38-126); Anion Gap 19.1 mEq/L (5-15); Aspartate Amino Transferase 26 U/L (17-59); Bilirubin,Total 1.2 mg/dl (0.2-1.3); Blood Urea Nitrogen 10 mg/dl (9-20); Calcium 10.0 mg/dl (8.4-10.2); Carbon Dioxide 24 mmol/L (22.0-30.0); Chloride 100 mmol/L (98-107); Cholesterol 171 mg/dl (140-200); Creatinine,Serum 1.20 mg/dl (0.66-1.25); Estimated Glomerular Filt Rate 63 ml/min (>60); GFR (African American) 76 ML/MIN (>60); Globulin 3.6 g/dL (1.3-3.2); Glucose 110 mg/dl (74-100); HDL Cholesterol 43 mg/dl (40-60); Potassium 4.1 mmoL/L (3.5-5.1); Sodium 139 mmol/L (136-145); Total Protein,Serum 8.1 g/dl (6.3-8.2); Triglycerides 86 mg/dl (30-150)
== END 2025-05-04 23:59 | disposition home or self-care (01) ==
LOC: LAB.DROPOF 05-07 11:15
PROVIDERS: PCP Family Medicine; Visit Provider Family Medicine
DX: I10 Essential (primary) hypertension (principal)
CPT/HCPCS: 80053; 80061

== ENCOUNTER 2025-08-17 09:59 | Outpatient (CLI) | payer OTHER, SELFPAY ==
--- OUTSIDE RECORDS SUMMARY | 2025-08-05 15:18 | XMS_ITS | Encounter Summary ---
Author Organization Healthcare Address [address] [place] [address] Care Team Providers Care Tools And Parts Attendant Name Role Phone Tim Pappas MD Primary Care Provider [phone]- [phone] Reason for Visit * Reason Comments Multiple Complaints Encounter Details Date Type Department Care Team ([facility] Contact Info) Description 08/05/2025 3:18 PM EDT - 08/05/2025 4:57 PM EDT Emergency [facility] Emergency Department [address] [place] [address] Upper respiratory tract infection, unspecified type (Primary Dx) Discharge Disposition: Home or Self Care Social History Tobacco Use Types Packs/Day Years Used Date Smoking Tobacco: Never Assessed Sex and Gender Information Value Date Recorded Sex Assigned at Not on file Legal Sex Male 6:52 PM EDT Gender Identity Not on file Sexual Orientation Not on file documented as of this encounter Last Filed Vital Signs Vital Sign Reading Time Taken Comments Blood Pressure 138/80 08/05/2025 3:17 PM EDT Pulse 77 08/05/2025 3:17 PM EDT Temperature 36.7 C (98.1 F) 08/05/2025 3:17 PM EDT Respiratory Rate 16 08/05/2025 3:17 PM EDT Oxygen Saturation 96% 08/05/2025 3:17 PM EDT Inhaled Oxygen Concentration - - Weight - - Height - - Body Mass Index - - documented in this encounter Functional Status * Calculated C-SSRS Risk Score (Lifetime/Recent) Answer Date of Assessment Author No Risk Indicated 08/05/2025 3:20 PM EDT Eugenia Soliman, RN * Question Answer Date of Assessment Author 1. Wish to be (Past 1 Month) No 08/05/2025 3:20 PM EDT Eugenia Coley, RN 2. Non-Specific Active Suici elmer Thoughts (Past 1 Month) No 08/05/2025 3:20 PM EDT Steve Coley RN 6. Suicidal Behavior (Lifetime) No 3:20 PM EDT Eugenia Coley, RN documented as of this encounter Discharge Instructions * Discharge Instructions* Carlos Lopez PA - 08/05/2025 4:37 PM EDT Please follow-up with primary care physician 1-2 days. Please return to the emergency room immediately with any worsening of symptoms, any problems or concerns. Please moss picker your prescriptions upondischarge and take as directed. Please drink plenty of fluids get plenty of rest. documented in this encounter Medications at Time of Discharge acetaminophen (Tylenol) 500 MG tablet Take 1 tablet by mouth every 6 hours as needed for pain or headaches for up to 5 days. 20 tablet 08/05/2025 5 dextromethorphan -guaiFENesin (Mucinex DM) 30-600 MG 12 hr tablet Take 1 tablet by mouth every 12 hours for 7 days. Do not crush, chew, or split. 14 tablet 08/05/2025 5 ibuprofen 600 MG tablet Take 1 tablet by mouth every 8 hours as needed for mild pain or headaches for up to 4 days. 12 tablet 08/05/2025 5 documented as of this encounter Miscellaneous Notes * Toribio Mendez - Carlos Lopez PA - 08/05/2025 4:38 PM EDT Images from the original note were not included. [id number] Viral Upper Respiratory Illness (Adult) You have a viral upper respiratory illness (URI), which is another term for the common cold. This viral illness is contagious during the first few days. It spreads through the air by the sick person coughing and sneezing. It may also spread by direct contact (touching the sick person and then touching your own eyes, nose, or mouth). Frequent handwashing will lower the risk of spread. Most viral illnesses end within 7 to 10 days with rest and simple home remedies. Sometimes, the illness may lastfor several weeks. Antibiotics will not kill a virus, and they are generally not prescribed for this condition. Home care ? If symptoms are severe, rest at home for the first 2 to 3 days or as advised. When you resume activity, don't let yourself get too tired. ? Don't smoke. If you do smoke and need help quitting, talk with your health care provider. ? Avoid secondhand smoke. ? You may use acetaminophen or ibuprofen to control pain and fever unless another medicine was prescribed. If you have chronic liver or kidney disease, talk with your provider before taking these medicines. Also, talk with your provider if you've had a stomach ulcer or digestive bleeding, or if youtake blood-thinning medicines. Never give aspirin to anyone under 18 years of age who is ill with aviral infection or fever. It may cause severe liver or brain damage, or even . ? Your appetite may be poor, so a light diet is okay. Stay well hydrated by drinking 6 to 8 glassesof fluids per day (water, soft drinks, juices, tea, or soup). Extra fluids will help loosen secretions in the nose and lungs. ? Ohbs-zzw-tvmzqzx cold medicines will not help you to recover quickly. But they may be helpful forcough, sore throat, and nasal and sinus congestion. If you take prescription medicines, ask your provider or pharmacist which ufhz-zyb-flwvfvy medicines are safe to use. If you have high blood pressure, don't use decongestants without first talking with your provider. Follow-up care Follow up with your health care provider, or as advised. When to seek medical advice Contact your health care provider right away if any of these occur: ? Cough with lots of colored sputum (mucus) ? Severe headache; face, neck, or ear pain ? Difficulty swallowing due to throat pain ? Fever of 100.4??F (38??C) or higher , or as directed by your provider Call 911 Call 911 if any of these occur: ? Chest pain, shortness of breath, wheezing, or difficulty breathing ? Coughing up blood ? Very severe pain with swallowing, especially if it goes along with a muffled voice ? Feeling of doom ? Feeling dizzy, faint, or confused ? Lips or skin is blue, purple, or flynn in color ? Prolonged fever of 102??F (38.8??C) or higher ? Symptoms that get worse or last longer than 10 days Last Reviewed Date: 2024 00:00:00 ?? [id number] [employer]. All rights reserved. This information is not intended as a substitute for professional medical care. Always follow your healthcare professional's instructions. * ED Provider Notes - Carlos Lopez PA - 08/05/2025 2:56 PM EDT Images from the original note were not included. - HPI Chief Complaint Patient presents with Multiple Complaints Patient is a 55-year-old male who presents to the emergency room with reports he does have a mild headache with pressure behind his eyes and to his forehead. Patient reports also having nasal congestion, runny nose and sore throat that started yesterday. Patient reports no fever chills. Patient reports no chest pain, no shortness of air, wheezing or stridor. Patient reports no abdominal pain, no nausea/vomiting/diarrhea. Patient reports no neck pain or neck stiffness. Patient reports no back pain, flank pain or urinary symptoms. Patient reports no visual changes, no tinnitus, no dizziness or feeling lightheaded. Patient reports no known contacts that have been sick recently. Patient reports no other problems or complaints. History provided by: Patient educational interpreter used: No URI Presenting symptoms: congestion, rhinorrhea and sore throat Severity: Mild Onset quality: Gradual Duration: 1 day Timing: Constant Progression: Waxing and waning Chronicity: New Relieved by: Nothing Worsened by: Nothing Ineffective treatments: None tried Associated symptoms: headaches Associated symptoms: no arthralgias, no myalgias, no neck pain, no sinus pain, no sneezing, no swollen glands and no wheezing Patient History Past Medical History[1] Surgical History[2] Family History[3] Social History[4] Allergies: Allergies[5] Physical Exam ED Triage Vitals [08/05/25 1517] Temp Heart Rate Resp BP 36.7 ??C (98.1 ??F) 77 16 138/80 SpO2 Temp Source Heart Rate Source Patient Position 96 % Oral -- -- BP Location FiO2 (%) -- -- Physical Exam Vitals and nursing note reviewed. Constitutional: General: He is not in acute distress. Appearance: Normal appearance. He is not ill-appearing, toxic-appearing or diaphoretic. HENT: Head: Normocephalic and atraumatic. Right Ear: Tympanic membrane, ear canal and external ear normal. Left Ear: Tympanic membrane, ear canal and external ear normal. Nose: Congestion and rhinorrhea present. Mouth/Throat: Mouth: Mucous membranes are moist. Pharynx: Oropharynx is clear. Posterior oropharyngeal erythema present. No oropharyngeal exudate. Comments: Mild erythema noted to the pharynx. No exudate. No trismus. No peritonsillar abscess. No difficulty swallowing or opening of mouth. No lymphadenopathy. Eyes: General: No scleral icterus. Right eye: No discharge. Left eye: No discharge. Conjunctiva/sclera: Conjunctivae normal. Cardiovascular: Rate and Rhythm: Normal rate and regular rhythm. Pulses: Normal pulses. Heart sounds: Normal heart sounds. No murmur heard. No gallop. Pulmonary: Effort: Pulmonary effort is normal. No respiratory distress. Breath sounds: Normal breath sounds. No stridor. No wheezing, rhonchi or rales. Abdominal: General: Abdomen is flat. There is no distension. Musculoskeletal: General: Normal range of motion. Cervical back: Normal range of motion and neck supple. No rigidity. Skin: General: Skin is warm and dry. Capillary Refill: Capillary refill takes less than 2 seconds. Coloration: Skin is not jaundiced or pale. Neurological: General: No focal deficit present. Mental Status: He is alert and oriented to person, place, and time. Sensory: No sensory deficit. Motor: No weakness. Psychiatric: Mood and Affect: Mood normal. Behavior: Behavior normal. [place] Coma Scale Score: 15 ED Course & MDM -Patient is a 55-year-old male who presents to the emergency room with reports he does have a mild headache with pressure behind his eyes and to his forehead. Patient reports also having nasal congestion, runny nose and sore throat that started yesterday. Patient with a COVID swab and influenza swab completed with being negative. Patient's strep swab completed with being negative. Did discuss with patient concerning lab results. Patient in the ED was given acetaminophen 650 mg by mouth. Patientin the ED is nontoxic, afebrile, no acute distress, well appearing, no meningeal signs. No cyanosis. Patient will be given a prescription for Mucinex DM at discharge and also for Tylenol and ibuprofen. Patient was instructed to follow up with family physician 1-2 days. Patient was given explicit return precautions to the ED with patient verbalizing understanding agrees with plan with no further questions. Assessment: 55 y.o. male presents to ED with complaint of mild headache with pressure behind his eyes into his forehead. Nasal congestion, runny nose and sore throat that started yesterday. It should be noted that the chronic conditions includes hypertension, which currently is at goal therapy. This complicates the clinical picture because it Comorbidities: increases the amount and complexity of data to be reviewed Differential Diagnosis: COVID 19, influenza type a, influenza type B, URI among others In order to fully explore the differential diagnosis the following treatments and tests were ordered: ED Medication Administration from 08/05/2025 1456 to 08/05/2025 1638 Date/Time Order Dose Route Action 08/05/2025 1536 EDT acetaminophen (Tylenol) tablet 650 mg 650 mg Oral Given All Other Orders Ordered Status Ordering Provider 08/05/25 1605 Streptococcus Culture Once In process CARLOS LOPEZ 08/05/25 1519 SARS-CoV-2 COVID-19/Influenza A,B STAT Final result CARLOS LOPEZ 08/05/25 1519 Group A Streptococcus by PCR - GSH STAT Final result CARLOS LOPEZ ED Course as of 08/05/25 1638 Sun Aug 05, 2025 1635 SARS CoV-2/COVID-19 RNA PCR Result: Not Detected [TN] 1635 Influenza A Virus PCR Result: Not Detected [TN] 1635 Influenza B Virus PCR Result: Not Detected [TN] 1635 Group A Streptococcus PCR Result: Not Detected [TN] ED Course User Index [TN] Carlos Lopez PA Clinical Impressions as of 08/05/25 1638 Upper respiratory tract infection, unspecified type Social Determinates of Health Risks (including Economic Stability, Education and level of understanding, Healthcare access and quality and concerning social factors): None identified on this visit Ultimately, this patient was Was discharged Home (Discharge) The encounter diagnosis was Upper respiratory tract infection, unspecified type. . Patient was counseled on the diagnoses. Discharge medications if any are listed below. Listed medications are thought be either curative for listed diagnoses or will help control ongoing symptoms. Patientis requested to follow up with Patient's Primary Care Provider in order to obtain routine follow-up. Instructions on follow up as well as precautions to return to the ER provided verbally by the EM provider, as well as written in patients discharge education packet. ED Prescriptions Medication Sig Dispense Start Date End Date Auth. Provider dextromethorphan-guaiFENesin (Mucinex DM) 30-600 MG 12 hr tablet Take 1 tablet by mouth every 12 hours for 7 days. Do not crush, chew, or split. 14 tablet 08/05/2025 08/12/2025 Carlos Lopez PA acetaminophen (Tylenol) 500 MG tablet Take 1 tablet by mouth every 6 hours as needed for pain or headaches for up to 5 days. 20 tablet 08/05/2025 08/10/2025 Carlos Lopez PA ibuprofen 600 MG tablet Take 1 tablet by mouth every 8 hours as needed for mild pain or headaches for up to 4 days. 12 tablet 08/05/2025 08/09/2025 Carlos Lopez PA Discharge Instructions Please follow-up with primary care physician 1-2 days. Please return to the emergency room immediately with any worsening of symptoms, any problems or concerns. Please moss picker your prescriptions upondischarge and take as directed. Please drink plenty of fluids get plenty of rest. Disposition Discharge Follow-Ups: Call Tim Pappas MD in 1 day (08/06/2025) - [1] History reviewed. No pertinent past medical history. [2] History reviewed. No pertinent surgical history. [3] No family history on file. [4] [5] No Known Allergies Carlos Lopez PA 08/05/25 1638 Cosigned by So Johnson MD at 08/05/2025 4:50 PM EDT Associated attestation - So Johnson MD - 08/05/2025 4:50 PM EDT The patient was seen only by Advanced Practice Provider (ROSETTE), and care was reviewed with me. * ED Triage Notes - Efra Banegas, RN - 08/05/2025 2:56 PM EDT Pt with c/o sore throat, body aches, headache x 3 days. documented in this encounter Plan of Treatment Not on file documented as of this encounter Procedures Procedure Name Priority Date/Time Associated Diagnosis Comments GROUP A STREPTOCOCCUS BY PCR GSH STAT 08/05/2025 3:32 PM EDT SARS COV2 COVID 19/INFLUENZA A, B STAT 08/05/2025 3:32 PM EDT STREPTOCOCCUS CULTURE STAT 08/05/2025 3:32 PM EDT documented in this encounter Results * Streptococcus Culture (08/05/2025 3:32 PM EDT) Culture Reading Strep A No Streptococcus pyogenes or Streptococcus dysgalactiae isolated 08/07/2025 9:41 AM EDT [facility] Swab Pharyngeal structure / Unknown Non-blood Collection / Unknown 08/05/2025 3:32 PM EDT 08/05/2025 3:38 PM EDT [facility] MICROBIOLOGY - GENERAL ORDER GRACE Final Result [facility] [address] [place] [address] * Group A Streptococcus by PCR - GSH (08/05/2025 3:32 PM EDT) Group A Streptococcus PCR Result Not Detected Not Detected 08/05/2025 4:05 PM EDT [facility] Comment:For In Vitro Diagnos tic Use Swab Pharyngeal structure / Unknown Non-blood Collection / Unknown 08/05/2025 3:32 PM EDT 08/05/2025 3:38 PM EDT [facility] MICROBIOLOGY - GENERAL ORDER GRACE Final Result [facility] [address] [place] [address] * SARS-CoV-2 COVID-19/Influenza A,B (08/05/2025 3:32 PM EDT) [facility] SARS CoV-2/COVID-19 RNA PCR Result Not Detected Not Detected 08/05/2025 4:12 PM EDT [facility] Comment:For In Vitro Diagnos tic Use Influenza A Virus PCR Result Not Detected Not Detected 08/05/2025 4:12 PM EDT [facility] Comment:For In Vitro Diagnos tic Use Influenza B Virus PCR Result Not Detected Not Detected 08/05/2025 4:12 PM EDT [facility] Comment:For In Vitro Diagnos tic Use Swab Nasopharyngeal structure / Unknown Non-blood Collection / Unknown 08/05/2025 3:32 PM EDT 08/05/2025 3:38 PM EDT Narrative [facility] - 08/05/2025 4:12 PM EDT This test was performed using the Paulino SARS-CoV-2 & Influenza A/B assay on the Juan Reema analyzer, an RT-PCR based method. Negative results do not preclude infection with the SARS-CoV-2 virus and should not be the sole basis of a patient treatment/management or public health decision. Follow up testing should be performed according to the current CDC recommendations. The limit of detection (LoD) for this assay is 12 cp/mL SARS-CoV-2 RNA. Use of the Paulino SARS-CoV-2 & Influenza A/B assay in an asymptomatic screening population is intended to be used as part of an infection control plan that may include additional preventative measures, such as a predefined serial testing plan or directed testing of high-risk individuals. Negative results should be considered presumptive and do not preclude current or future infection obtained through community transmission or other exposures. Negative results must be considered in the context of an individual's recent exposures, history, presence of clinical signs and symptoms consistent with COVID-19. [facility] MICROBIOLOGY - GENERAL ORDER GRACE Final Result [facility] [address] [place] [address] documented in this encounter Visit Diagnoses Diagnosis Upper respiratory tract infection, unspecified type- Primary documented in this encounter Administered Medications Inactive Administered Medications - up to 3 most recent administrations Medication Order MAR Action Action Date Dose Rate Site acetaminophen (Tylenol) tablet 650 mg 650 mg, Oral, Once, 1 dose, On 08/05/25 at 1535, STAT Given 08/05/2025 3:36 PM EDT 650 mg documented in this encounter Active and Recently Administered Medications Times are shown in EDT. Scheduled Medication Order 08/03/2025 08/04/2025 08/05/2025 acetaminophen (Tylenol) tablet 650 mg (COMPLETED) 650 mg, Oral, Once, 1 dose, On 08/05/25 at 1535, STAT 1536 (Given - Provid er: Eugenia Coley RN) documented in this encounter Additional Health Concerns Infection Onset Date Last Indicated Resolved Time COVID-19 Rule-Out 08/05/2025 08/05/2025 08/05/2025 4:12 PM EDT documented as of this encounter Care Teams Tools And Parts Attendant Relationship Specialty Start Date End Date Tim Pappas MD [address] [place] [address] PCP - General 08/05/25 documented as of this encounter
[2025-08-17 20:44] LABS: Hematocrit 44.2 % (42.0-52.0); Hemoglobin 15.5 g/dL (14.1-18.0); Immature Granulocytes % 0.3 %; Mean Corpuscular HGB Conc 35.1 g/dL (31.8-35.4); Mean Corpuscular Hemoglobin 31.3 pg (27.0-31.2); Mean Corpuscular Volume 89.3 fl (80-94); Nucleated Red Blood Cells % 0 %; Platelet Count 332 K/mm3 (142-424); Red Blood Count 4.95 M/mm3 (4.60-6.20); Red Cell Distribution Width-SD 42.5 fL; White Blood Count 12.9 K/mm3 (4.8-10.8)
[2025-08-17 21:39] LABS: Albumin Level 4.0 g/dl (3.5-5.0); Chloride 101 mmol/L (98-107); Potassium 3.9 mmoL/L (3.5-5.1); Sodium 137 mmol/L (136-145)
[2025-08-17 21:42] LABS: Alanine Aminotransferase 50 U/L (12-78); Albumin/Globulin Ratio 1.1 (1.1-1.8); Alkaline Phosphatase 99 U/L (38-126); Anion Gap 11.9 mEq/L (5-15); Aspartate Amino Transferase 30 U/L (17-59); Bilirubin,Total 0.8 mg/dl (0.2-1.3); Blood Urea Nitrogen 11 mg/dl (9-20); Carbon Dioxide 28 mmol/L (22.0-30.0); Creatinine,Serum 1.10 mg/dl (0.66-1.25); Estimated Glomerular Filt Rate 69 ml/min (>60); GFR (African American) 84 ML/MIN (>60); Globulin 3.7 g/dL (1.3-3.2); Total Protein,Serum 7.7 g/dl (6.3-8.2)
[2025-08-17 21:43] LABS: Calcium 9.4 mg/dl (8.4-10.2); Glucose 127 mg/dl (74-100)
--- OUTSIDE RECORDS SUMMARY | 2025-08-20 10:09 | XMS_ITS | Clinical Summary ---
Author Organization Healthcare Address [address] [place] [address] Care Team Providers Care Propeller Mechanic Name Role Phone Tim Pappas MD Primary Care Provider +1- [phone] Allergies No known active allergies Medications dextromethorpha n-guaiFENesin (Mucinex DM) 30-600 MG 12 hr tablet Take 1 tablet by mouth every 12 hours for 7 days. Do not crush, chew, or split. 14 tablet 5 08/12/20 25 acetaminophen (Tylenol) 500 MG tablet Take 1 tablet by mouth every 6 hours as needed for pain or headaches for up to 5 days. 20 tablet 5 08/10/20 25 ibuprofen 600 MG tablet Take 1 tablet by mouth every 8 hours as needed for mild pain or headaches for up to 4 days. 12 tablet 5 08/09/20 25 Encounters Date Type Department Care Team Description 08/05/2025 3:18 PM EDT - 08/05/2025 4:57 PM EDT Emergency [facility] Emergency Department [address] [place] [address] Upper respiratory tract infection, unspecified type (Primary Dx) Discharge Disposition: Home or Self Care 08/05/2025 Travel from Last 3 Months Social History Tobacco Use Types Packs/Day Years Used Date Smoking Tobacco: Never Assessed Sex and Gender Information Value Date Recorded Sex Assigned at Not on file Legal Sex Male 6:52 PM EDT Gender Identity Not on file Sexual Orientation Not on file Last Filed Vital Signs Vital Sign Reading Time Taken Comments Blood Pressure 138/80 08/05/2025 3:17 PM EDT Pulse 77 08/05/2025 3:17 PM EDT Temperature 36.7 C (98.1 F) 08/05/2025 3:17 PM EDT Respiratory Rate 16 08/05/2025 3:17 PM EDT Oxygen Saturation 96% 08/05/2025 3:17 PM EDT Inhaled Oxygen Concentration - - Weight - - Height - - Body Mass Index - - Plan of Treatment Not on file Procedures Procedure Name Priority Date/Time Associated Diagnosis Comments STREPTOCOCCUS CULTURE STAT 08/05/2025 3:32 PM EDT GROUP A STREPTOCOCCUS BY PCR GSH STAT 08/05/2025 3:32 PM EDT SARS COV2 COVID 19/INFLUENZA A, B STAT 08/05/2025 3:32 PM EDT from Last 3 Months Results * Group A Streptococcus by PCR - GSH (08/05/2025 3:32 PM EDT) Group A Streptococcus PCR Result Not Detected Not Detected 08/05/2025 4:05 PM EDT [facility] Comment:For In Vitro Diagnos tic Use Swab Pharyngeal structure / Unknown Non-blood Collection / Unknown 08/05/2025 3:32 PM EDT 08/05/2025 3:38 PM EDT [facility] [place] [facility] MICROBIOLOGY - GENERAL ORDER GRACE Final Result [facility] [address] [place] [address] * SARS-CoV-2 COVID-19/Influenza A,B (08/05/2025 3:32 PM EDT) SARS CoV-2/COVID-19 RNA PCR Result Not Detected [...] PM EDT 08/05/2025 3:38 PM EDT Narrative [facility] - 08/05/2025 4:12 PM EDT This [...] clinical signs and symptoms consistent with COVID-19. [facility] MICROBIOLOGY - GENERAL ORDER GRACE Final Result Performing Organization Address City/[facility] Co de Phone Number [facility] [address] [place] [address] * Streptococcus Culture (08/05/2025 3:32 PM EDT) Culture Reading Strep A No Streptococcus pyogenes or Streptococcus dysgalactiae isolated 08/07/2025 9:41 AM EDT [facility] Swab Pharyngeal structure / Unknown Non-blood Collection / Unknown 08/05/2025 3:32 PM EDT 08/05/2025 3:38 PM EDT [facility] [employer] [facility] MICROBIOLOGY - GENERAL ORDER GRACE Final Result Performing Organization Address City/[facility]/ZIP Co de Phone Number [facility] [address] [place] [address] from Last 3 Months Insurance [employer] [facility] MEDICAID Care Teams Propeller Mechanic Relationship Specialty Start Date End Date Tim Pappas MD [address] [place] [address] PCP - General 08/05/25
--- OUTSIDE RECORDS SUMMARY | 2025-08-20 10:09 | XMS_ITS | Encounter Summary ---
Author Organization Healthcare Address [address] [id number] Care Team Providers Care Child Development Teacher Name Role Phone Tim Pappas MD Primary Care Provider +1- [phone] Encounter Details Date Type Department Care Team (Latest Contact Info) Description 08/05/2025 Travel Social History Tobacco Use Types Packs/Day Years Used Date Smoking Tobacco: Never Assessed Sex and Gender Information Value Date Recorded Sex Assigned at Not on file Legal Sex Male 6:52 PM EDT Gender Identity Not on file Sexual Orientation Not on file documented as of this encounter Functional Status * Calculated C-SSRS Risk Score (Lifetime/Recent) Answer Date of Assessment Author No Risk Indicated 08/05/2025 3:20 PM EDT Eugenia Soliman RN * Question Answer Date of Assessment Author 1. Wish to be (Past 1 Month) No 08/05/2025 3:20 PM EDT Eugenia Coley, MEGAN 2. Non-Specific Active Suici elmer Thoughts (Past 1 Month) No 08/05/2025 3:20 PM EDT Steve Coley RN 6. Suicidal Behavior (Lifetime) No 3:20 PM EDT Eugenia Coley RN documented as of this encounter Plan of Treatment Not on file documented as of this encounter Visit Diagnoses Not on filedocumented in this encounter Additional Health Concerns Infection Onset Date Last Indicated Resolved Time COVID-19 Rule-Out 08/05/2025 08/05/2025 08/05/2025 4:12 PM EDT documented as of this encounter Care Teams Child Development Teacher Relationship Specialty Start Date End Date Tim Pappas MD [address] [place] [address] PCP - General 08/05/25 documented as of this encounter
== END 2025-08-17 23:59 ==
LOC: LAB.DROPOF 08-20 09:59
PROVIDERS: PCP Family Medicine; Visit Provider Family Medicine
DX: R42 Dizziness and giddiness (principal)
CPT/HCPCS: 80053; 85025